=== PATIENT | female | born 1940 | race Caucasian/White ===

== ENCOUNTER → 2019-09-30 12:59 | Outpatient (BNVA) | payer MEDICARE, OTHER, SELFPAY | PROVIDERS: Family Provider Family Medicine; PCP Family Medicine; Visit Provider Nurse Practitioner Family | DX: J18.9 Pneumonia, unspecified organism (principal) | CPT/HCPCS: 80048 ==

== ENCOUNTER → 2019-10-20 13:26 | Outpatient (BNVA) | payer MEDICARE, OTHER, SELFPAY | PROVIDERS: Family Provider Family Medicine; PCP Family Medicine; Visit Provider Family Medicine | DX: J18.9 Pneumonia, unspecified organism (principal) | CPT/HCPCS: 80048 ==

== ENCOUNTER → 2021-05-21 14:04 | Outpatient (BNVA) | payer MEDICARE, OTHER, SELFPAY | PROVIDERS: Family Provider Family Medicine; PCP Family Medicine; Visit Provider Nurse Practitioner Family | DX: K92.2 Gastrointestinal hemorrhage, unspecified (principal); K92.1 Melena | CPT/HCPCS: 80053; 85025 ==

== ENCOUNTER → 2021-07-10 15:34 | Outpatient (BNVA) | payer MEDICARE, OTHER, SELFPAY | PROVIDERS: Family Provider Family Medicine; PCP Family Medicine; Visit Provider Nurse Practitioner Family | DX: R53.83 Other fatigue (principal); A31.0 Pulmonary mycobacterial infection; Z09 Encounter for follow-up examination after completed treatment for conditions other than malignant neoplasm; Z68.22 Body mass index [BMI] 22.0-22.9, adult; Z71.89 Other specified counseling | CPT/HCPCS: 71046; 80053; 82306; 82607; 84443; 85025 ==

== ENCOUNTER → 2021-08-01 10:34 | Outpatient (BNVA) | payer MEDICARE, OTHER, SELFPAY | PROVIDERS: Family Provider Family Medicine; PCP Family Medicine; Visit Provider Nurse Practitioner Family | DX: E87.6 Hypokalemia (principal) | CPT/HCPCS: 80048; 85025 ==

== ENCOUNTER → 2021-11-22 09:53 | Outpatient (BNVA) | payer MEDICARE, OTHER, SELFPAY | PROVIDERS: Family Provider Family Medicine; PCP Family Medicine; Visit Provider Internal Medicine Pulmonary Disease | DX: J47.9 Bronchiectasis, uncomplicated (principal); R04.2 Hemoptysis; J45.909 Unspecified asthma, uncomplicated; Z09 Encounter for follow-up examination after completed treatment for conditions other than malignant neoplasm; A31.0 Pulmonary mycobacterial infection; J96.11 Chronic respiratory failure with hypoxia; J45.40 Moderate persistent asthma, uncomplicated | CPT/HCPCS: 87015; 87070; 87116; 87206; 87801; 99214 ==

== ENCOUNTER 2022-02-06 08:59 | Outpatient (CLI) | payer MEDICARE, OTHER, SELFPAY ==
--- NOTE | 2022-02-06 14:27 | PFTS_ITS ---
Date of Study:02/06/22 Date of Dictation: MECHANICS: Forced vital capacity (FVC) is reduced. Forced expiratory volume in one second (FEV1) is reduced. FEV1/FVC is reduced. FLOW VOLUME LOOP: Reduced flow at all lung volumes with significant scooping. LUNG VOLUMES: Total lung capacity (TLC) is normal. Residual volume (RV) is increased. DIFFUSING CAPACITY FOR CARBON MONOXIDE: Moderately reduced. INTERPRETATION: The prebronchodilator spirometry is consistent with moderate airflow obstruction. No postbronchodilator spirometry was performed. However, the patient used her rescue inhaler prior to the spirometry. Lung volumes are consistent with air trapping. Gas exchange (DLCO) is moderately reduced. MTDD
== END 2022-02-06 09:00 | disposition home or self-care (01) ==
LOC: RT 09:01
PROVIDERS: Family Provider Family Medicine; PCP Family Medicine; Visit Provider Internal Medicine Pulmonary Disease
DX: J44.9 Chronic obstructive pulmonary disease, unspecified (principal); F17.210 Nicotine dependence, cigarettes, uncomplicated
CPT/HCPCS: 94010; 94726; 94729

== ENCOUNTER 2022-02-18 13:39 | Outpatient (CLI) | payer MEDICARE, OTHER, SELFPAY ==
--- NOTE | 2022-02-18 13:30 | CTR_ITS ---
PROCEDURE INFORMATION: Exam: CT Chest Without Contrast; Diagnostic Exam date and time: 02/18/2022 1:46 PM Age: 81 years old Clinical indication: Abnormal findings; Abnormal radiologic exam of lung or chest; Additional info: New opacity on chest xray in July 2021 TECHNIQUE: Imaging protocol: Diagnostic computed tomography of the chest without contrast. Radiation optimization: All CT scans at this facility use at least one of these dose optimization techniques: automated exposure control; mA and/or kV adjustment per patient size (includes targeted exams where dose is matched to clinical indication); or iterative reconstruction. COMPARISON: CT angio chest [id number] 03/16/2021 8:20 AM RADIATION DOSE METRICS: Total DLP (mGy-cm): 673.82 FINDINGS: Lungs: Scattered somewhat focal airspace opacities throughout both lung aviles, somewhat similar to prior exam may reflect a chronic infectious or inflammatory process. Emphysematous changes. Pleural spaces: Unremarkable. No pneumothorax. No pleural effusion. Heart: Cardiomegaly. Coronary artery atherosclerotic calcifications. Lymph nodes: Several prominent mediastinal lymph nodes measuring 10 mm, nonspecific. Vasculature: Unremarkable. No aortic aneurysm. Gallbladder and bile ducts: Cholecystectomy. Bones/joints: Pectus excavatum deformity, normal variant. Right humeral head and glenoid chronic deformity and remodeling. Soft tissues: Unremarkable. CT/CT chest wo con [id number] IMPRESSION: 1. Scattered somewhat focal airspace opacities throughout both lung aviles, somewhat similar to prior exam may reflect a chronic infectious or inflammatory process. 2. Cardiomegaly. 3. Coronary artery atherosclerotic calcifications. 4. Several prominent mediastinal lymph nodes measuring 10 mm, nonspecific. 5. Pectus excavatum deformity, normal variant. 6. Cholecystectomy. 7. Right humeral head and glenoid chronic deformity and remodeling. 8. Emphysematous changes.
== END 2022-02-18 13:40 | disposition home or self-care (01) ==
LOC: RAD 13:40
PROVIDERS: Family Provider Family Medicine; PCP Family Medicine; Visit Provider Internal Medicine Pulmonary Disease
DX: R04.2 Hemoptysis (principal); R91.8 Other nonspecific abnormal finding of lung field; I51.7 Cardiomegaly; I25.10 Atherosclerotic heart disease of native coronary artery without angina pectoris; Z90.49 Acquired absence of other specified parts of digestive tract; R59.0 Localized enlarged lymph nodes; Q67.6 Pectus excavatum; M21.921 Unspecified acquired deformity of right upper arm
CPT/HCPCS: 71250

== ENCOUNTER 2022-03-11 06:00 | Outpatient (RCR) | payer MEDICARE, OTHER, SELFPAY | END 2022-03-20 23:59 | disposition home or self-care (01) | LOC: TPT 06:00 | PROVIDERS: Family Provider Family Medicine; PCP Family Medicine; Referring Provider Internal Medicine Pulmonary Disease; Visit Provider Internal Medicine Pulmonary Disease | DX: R53.81 Other malaise (principal); J96.11 Chronic respiratory failure with hypoxia; J47.9 Bronchiectasis, uncomplicated | CPT/HCPCS: 97110; 97163 ==

== ENCOUNTER 2022-03-21 06:00 | Outpatient (RCR) | payer MEDICARE, OTHER, SELFPAY | END 2022-04-20 23:59 | disposition home or self-care (01) | LOC: TPT 06:00 | PROVIDERS: PCP Family Medicine; Referring Provider Internal Medicine Pulmonary Disease; Visit Provider Internal Medicine Pulmonary Disease | DX: J96.11 Chronic respiratory failure with hypoxia (principal); J47.9 Bronchiectasis, uncomplicated; R53.81 Other malaise | CPT/HCPCS: 97110 ==

== ENCOUNTER → 2022-03-26 12:49 | Outpatient (BNVA) | payer MEDICARE, OTHER, SELFPAY | PROVIDERS: Family Provider Family Medicine; PCP Family Medicine; Visit Provider Internal Medicine Pulmonary Disease | DX: J84.9 Interstitial pulmonary disease, unspecified (principal); I70.0 Atherosclerosis of aorta | CPT/HCPCS: 71046 ==

== ENCOUNTER → 2022-03-27 10:16 | Outpatient (BNVA) | payer MEDICARE, OTHER, SELFPAY | PROVIDERS: Family Provider Family Medicine; PCP Family Medicine; Visit Provider Internal Medicine Pulmonary Disease | DX: R05.8 Other specified cough (principal) | CPT/HCPCS: 87015; 87070; 87116; 87205; 87206; 87801 ==

== ENCOUNTER 2022-04-21 06:00 | Outpatient (RCR) | payer MEDICARE, OTHER, SELFPAY | END 2022-05-21 23:59 | disposition home or self-care (01) | LOC: TPT 06:00 | PROVIDERS: PCP Family Medicine; Visit Provider Internal Medicine Pulmonary Disease | DX: J96.11 Chronic respiratory failure with hypoxia (principal); J47.9 Bronchiectasis, uncomplicated; R53.81 Other malaise | CPT/HCPCS: 97110 ==

== ENCOUNTER → 2022-04-23 16:52 | Outpatient (BNVA) | payer MEDICARE, OTHER, SELFPAY | PROVIDERS: PCP Family Medicine; Visit Provider Family Medicine | DX: R53.83 Other fatigue (principal); I95.9 Hypotension, unspecified | CPT/HCPCS: 85025 ==

== ENCOUNTER 2022-05-22 06:00 | Outpatient (RCR) | payer MEDICARE, OTHER, SELFPAY | END 2022-06-20 23:59 | disposition home or self-care (01) | LOC: TPT 06:00 | PROVIDERS: PCP Family Medicine; Visit Provider Internal Medicine Pulmonary Disease | DX: J96.11 Chronic respiratory failure with hypoxia (principal); J47.9 Bronchiectasis, uncomplicated; R53.81 Other malaise | CPT/HCPCS: 97110 ==

== ENCOUNTER 2022-06-21 06:00 | Outpatient (RCR) | payer MEDICARE, OTHER, SELFPAY | END 2022-07-21 23:59 | disposition home or self-care (01) | LOC: TPT 06:00 | PROVIDERS: PCP Family Medicine; Visit Provider Internal Medicine Pulmonary Disease | DX: J96.11 Chronic respiratory failure with hypoxia (principal); J47.9 Bronchiectasis, uncomplicated; R53.81 Other malaise | CPT/HCPCS: 97110 ==

== ENCOUNTER → 2022-06-25 12:13 | Outpatient (BNVA) | payer MEDICARE, OTHER, SELFPAY | PROVIDERS: PCP Family Medicine; Visit Provider Internal Medicine Pulmonary Disease | DX: D64.9 Anemia, unspecified (principal); J44.9 Chronic obstructive pulmonary disease, unspecified; R04.2 Hemoptysis; A31.0 Pulmonary mycobacterial infection; R06.02 Shortness of breath; J96.11 Chronic respiratory failure with hypoxia; J45.40 Moderate persistent asthma, uncomplicated; R91.1 Solitary pulmonary nodule | CPT/HCPCS: 85025 ==

== ENCOUNTER 2022-07-22 06:00 | Outpatient (RCR) | payer MEDICARE, OTHER, SELFPAY | END 2022-08-20 23:59 | disposition home or self-care (01) | LOC: TPT 06:00 | PROVIDERS: PCP Family Medicine; Visit Provider Internal Medicine Pulmonary Disease | DX: J96.11 Chronic respiratory failure with hypoxia (principal); J47.9 Bronchiectasis, uncomplicated; R53.81 Other malaise | CPT/HCPCS: 97110 ==

== ENCOUNTER 2022-07-31 14:39 | Outpatient (CLI) | payer MEDICARE, OTHER, SELFPAY ==
--- NOTE | 2022-07-31 15:30 | CT_ITS ---
WS: [id number] CT CHEST WITHOUT INTRAVENOUS CONTRAST HISTORY: R91.1 - Solitary pulmonary nodule TECHNIQUE: Contiguous 5 mm axial imaging performed on the thorax. Coronal and sagittal reformats are submitted. All CT scans at [facility] use at least one of these dose optimization techniques: automated exposure control; mA and/or kV adjustment per patient size (includes targeted exams where dose is matched to clinical indication); or iterative reconstruction. CONTRAST: None DLP: 734.64 mGy.cm COMPARISON: 02/18/2022 Lungs and central airway: Hyperexpanded lungs with diffuse scattered airspace disease. Numerous spicu lated opacifications and nodules are predominantly in the upper lung aviles. These have slightly incr eased in size and number since 02/18/2022. Majority of these small nodules are less than a centimeter. There is an area of increasing consolidation which I favor atelectasis along the RIGHT superior LEFT major fissure. Cylindrical bronchiectasis RIGHT middle lobe. Diffuse tree-in-bud airspace disease. Pleura: Normal. No pleural effusion. Heart and pericardium: Mildly enlarged heart. Heart is being deformed by pectus carinatum. Mediastinum and dionisio: On this unenhanced study no new or enlarging lymph nodes are identified. Subtle changes would be easily obscured without IV contrast. Vessels: Mild ectasia and atherosclerosis aorta. No aneurysm. Normal sized pulmonary artery. Chest wall and lower neck: Pectus carinatum. Upper abdomen: Prior cholecystectomy. No adrenal mass. Osseous structures: Osteopenia. Mild diffuse spondylitic changes in the visualized spine. Severe dege nerative changes involving the RIGHT shoulder. There is remodeling and chronic joint destruction. CT/CT chest wo con [id number] IMPRESSION: 1. Mild progression of bilateral, multilobar scattered opacifications. Some of these opacifications are tree-in-bud and some are spiculated. Increasing conso lidation along the LEFT major fissure is atelectasis. Favor these changes are p robably all postinflammatory and related to interstitial lung disease. With the slight increase in the size and number of the spiculated nodules metastatic di sease is not excluded. 2. RIGHT middle lobe partial atelectasis and bronchiectasis. 3. No central adenopathy. 4. Prior cholecystectomy.
== END 2022-07-31 14:40 | disposition home or self-care (01) ==
LOC: RAD 14:44
PROVIDERS: PCP Family Medicine; Visit Provider Internal Medicine Pulmonary Disease
DX: R91.1 Solitary pulmonary nodule (principal); Z90.49 Acquired absence of other specified parts of digestive tract; J98.11 Atelectasis; J47.9 Bronchiectasis, uncomplicated
CPT/HCPCS: 71250

== ENCOUNTER 2022-08-21 06:00 | Outpatient (RCR) | payer MEDICARE, OTHER, SELFPAY | END 2022-09-20 23:59 | disposition home or self-care (01) | LOC: TPT 06:00 | PROVIDERS: PCP Family Medicine; Visit Provider Internal Medicine Pulmonary Disease | DX: J96.11 Chronic respiratory failure with hypoxia (principal); J47.9 Bronchiectasis, uncomplicated; R53.81 Other malaise | CPT/HCPCS: 36415; 71045; 80048; 80053; 83735; 83880; 84100; 84443; 84484; 85025; 86403; 87040; 87486; 87581; 87633; 93005; 97110 ==

== ENCOUNTER 2022-09-01 07:36 | Inpatient (IN) | payer MEDICARE, OTHER, SELFPAY ==
[2022-09-01] VITALS (24 sets, daily range): BP systolic 93–130; BP diastolic 60–96; PULSE 77–141; RESP 16–29; TEMP 36.6; O2SAT 94–100; BMI 28.1
--- NOTE | 2022-09-01 07:48 | W.ED.ARRPALP ---
HPI - Arrhythmia/Palpitations General: Chief Complaint: Chest Pain Stated Complaint: CP/SOB Time Seen by Provider: 09/01/22 07:46 Source: patient Mode of arrival: ambulatory History of Present Illness: 82-year-old female presents emergency room with A. fib with rapid ventricular response. She had a known history of atrial fibrillation and is currently on sotalol she did take her morning dose she usually takes 80 mg twice daily. She is unsure of what she has been on in the past. 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 She is also on Eliquis 5 mg twice a day no recent medication changes she denies any chest pain she does have a sense of the rapid heart rate denies any shortness of breath she is moderately anxious on arrival she states it began suddenly this morning yesterday she felt normal. Patient has a history of bronchiectasis from [facility] [place]. She tells me she recently had a PET scan that she has not had the results of yet. She is having slight increased sputum cough with production of sputum. According to Dr. Meredith's notes this is chronic. complaint: rapid heart beat Onset (ago): hour(s) Duration: constant Severity: moderate Context: occurred during rest Arrhythmia history: atrial fibrillation Associated symptoms: Deny anxiety, cough, diaphoresis, muscle cramps, nausea, paresthesias, pre-syncope, sense of impending doom, short of breath, syncope or vomiting Review of Systems Const: Denies: fever(s), chills, fatigue, malaise or diaphoresis ENMT: Denies: throat pain, ear or mastoid pain, nasal discharge or nasal congestion Card: Reports: palpitations, irregular heart rhythm and dyspnea on exertion; Denies: chest pain, edema, swelling of feet/ankles, syncope, pre-syncope or orthopnea Resp: Denies: dyspnea, productive cough or non-productive cough GI: Denies: abdominal pain, nausea or vomiting : Denies: flank pain, difficulty voiding, dysuria, urinary frequency or urinary urgency Musc: Denies: muscle cramps Skin/Breast: Denies: rash or pruritus Psych: Denies: anxiety PFSH ED PFSH: Medical History (Updated 09/01/22 @ 12:53 by Fuad Martinez DO) Afib Anemia Asthma Bronchiectasis DJD (degenerative joint disease) GERD (gastroesophageal reflux disease) Hypertension Insomnia Migraine Mycobacterium avium complex Retinal tear Surgical History (Updated 09/01/22 @ 12:53 by Fuad Martinez DO) H/O colonoscopy 07/03/21: polyps, 3 year repeat History of appendectomy History of cholecystectomy History of hysterectomy History of right knee surgery Social History Smoking and tobacco status: former smoker Quit status (tobacco): has quit using tobacco Year quit tobacco: 1969 Former quit date comment: approx 1ppd x 4 years Second hand smoke exposure: Yes Alcohol intake: current Alcohol intake frequency: holidays/special occasions only Caregiver/support person: Yes (daughter) Lives independently: Yes Household members: none Marital status: / Current occupational status: retired History of recent travel: No Current gender identity: Female Special allen needs: No Physical Exam Const: GENERAL APPEARANCE: cooperative and comfortable ORIENTATION/CONSCIOUSNESS: Yes awake, Yes oriented to person, Yes oriented to place and Yes oriented to time HENMT: COMMON NORMALS: normocephalic, atraumatic and hearing grossly normal bilaterally HEAD & SCALP: normocephalic and atraumatic Resp: COMMON NORMALS: normal respiratory effort, No retractions, No use of accessory muscles and clear to auscultation bilaterally AUSCULTATION: clear to auscultation bilaterally Cardio: RATE: tachycardic RHYTHM: abnormal rhythm irregularly irregular GI: COMMON NORMALS: Soft to palpation and No hepatosplenomegaly present AUSCULTATION: Yes normoactive bowel sounds PALPATION: Yes Soft to palpation, No Tenderness to palpation present (GI), No Guarding due to palpation present (GI) and Yes No hepatosplenomegaly present : COMMON NORMALS: Yes no CVA tenderness BLADDER/KIDNEY EXAM: Yes no CVA tenderness Back/Pelvis: COMMON NORMALS: no CVA tenderness Extremity: COMMON NORMALS: normal to inspection, capillary refill normal, no clubbing, cyanosis or edema, no calf tenderness and no pedal edema Neuro: SENSORIUM/ORIENTATION: Yes oriented to person, Yes oriented to place and Yes oriented to time Skin: COMMON NORMALS: no rashes or lesions noted GENERAL SKIN EXAM: no rashes or lesions noted Course Vital Signs: Vital signs: Vital Signs Pulse Rate 114 H 09/01/22 12:43 Respiratory Rate 16 12/12/22 12:39 Blood Pressure 93/71 09/01/22 11:00 Pulse Oximetry 94 09/01/22 12:39 Oxygen Delivery Me thod 09/01/22 12:39 Oxygen Flow Rate 3 09/01/22 12:39 MDM - Arrhythmia/Palpitations Medical Decision Making A. fib and rapid ventricular spines. Patient states she had a little chest discomfort as well as shortness of breath she normally wears 4 L of oxygen for COPD we attempted to get her back to a controlled rate in the emergency room avoid hospital admission we gave her an extra 40 mg of sotalol initially started on Cardizem and then try to titrate her off were able to titrate her off but with any activity even repositioning herself in bed she shoots up to the 120s and 130s. Patient be placed in observation discussed with Dr. Gandara orders written Medical Records I reviewed the patient's medical records. Lab Data I reviewed the patient's lab results. 09/01/22 08:17 09/01/22 08:17 Radiology Impressions Chest X-Ray 09/01/22 08:33 Impression: 1. Minimal patchy peripheral left lung opacity which could represent atelectasis and/or pneumonia. 2. Atherosclerosis and hyperinflation. Laboratory Results WBC 10.9 10^3/uL (4.0-10.0) H 09/01/22 08:17 RBC 3.82 10^6/uL (4.1-5.3) L 09/01/22 08:17 Hgb 12.0 g/dL (11.5-15.3) 09/01/22 08:17 Hct 38.5 % (37.0-47.0) 09/01/22 08:17 MCV 100.8 fl (81-99) H 09/01/22 08:17 MCH 31.4 pg (28.0-34.0) 09/01/22 08:17 MCHC 31.2 g/dL (30.0-36.0) 09/01/22 08:17 RDW 13.8 % (12.1-15.1) 09/01/22 08:17 Plt Count 383 10^3/cmm (130-400) 09/01/22 08:17 MPV 9.5 fL (7.4-10.4) 09/01/22 08:17 Neut % (Auto) 81.2 % 09/01/22 08:17 Lymph % (Auto) 11.4 % 09/01/22 08:17 [place] % (Auto) 4.9 % 09/01/22 08:17 Eos % (Auto) 1.5 % 09/01/22 08:17 Baso % (Auto) 0.6 % 09/01/22 08:17 Neut # (Auto) 8.82 10^3/uL (1.8-7.7) H 09/01/22 08:17 Lymph # (Auto) 1.2 10^3/uL (0.8-4.8) 09/01/22 08:17 [place] # (Auto) 0.5 10^3/uL (0.2-0.9) 09/01/22 08:17 Eos # (Auto) 0.2 10^3/uL (0.0-0.8) 09/01/22 08:17 Baso # (Auto) 0.1 10^3/uL (0.0-0.1) 09/01/22 08:17 Nucleated RBC % (auto) 0 % 09/01/22 08:17 Nucleated RBCs # 0.0 /100WBC 09/01/22 08:17 Sodium 135 mmol/L (136-145) L 09/01/22 08:17 Potassium 4.2 mmol/L (3.5-5.1) 09/01/22 08:17 Chloride 100 mmol/L (98-107) 09/01/22 08:17 Carbon Dioxide 25 mmol/L (22-29) 09/01/22 08:17 Anion Gap 14.2 (5-19) 09/01/22 08:17 BUN 19 mg/dL (8-23) 09/01/22 08:17 Creatinine 0.7 mg/dL (0.5-0.9) 09/01/22 08:17 GFR Calculation Not Reportable 09/01/22 08:17 Glucose 122 mg/dL (65-115) H 09/01/22 08:17 Calculated Osmolality 284 mOsm/kg (285-295) L 09/01/22 08:17 Calcium 9.5 mg/dL (8.5-10.5) 09/01/22 08:17 Total Bilirubin 0.6 mg/dL (0.15-1.2) 09/01/22 08:17 AST 24 U/L (0-32) 09/01/22 08:17 ALT 16 U/L (0-33) 09/01/22 08:17 Alkaline Phosphatase 68 U/L (35-105) 09/01/22 08:17 Total Protein 6.5 g/dL (6.6-8.7) L 09/01/22 08:17 Albumin 3.4 g/dL (3.5-5.2) L 09/01/22 08:17 Globulin 3.1 g/dL (1.3-4.6) 09/01/22 08:17 Discharge Plan Discharge Patient Disposition: Placed in Observation Clinical Impression: Atrial fibrillation with rapid ventricular response, COPD (chronic obstructive pulmonary disease), Bronchiectasis Coding Level of Care Code ED Edge Bander Hand for Carag Fwd Exam Comprehensive
--- NOTE | 2022-09-01 07:52 | ECG_ITS ---
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 Measurements Intervals Ramer Rate: 140 P: 0 IN: 0 QRS: -47 QRSD: 106 T: 113 QT: 315 QTc: 482 Interpretive Statements ATRIAL FIBRILLATION WITH RAPID VENTRICULAR RESPONSE LEFT AXIS DEVIATION [QRS AXIS < -30] VOLTAGE CRITERIA FOR LVH [MEETS CRITERIA IN ONE OF: R(aVL), S(V1), R(V5), R(V5/V6)+S(V1)] ST DEVIATION AND MODERATE T-WAVE ABNORMALITY, CONSIDER LATERAL ISCHEMIA [-0.1+ mV T-WAVE IN I/aVL/V5/V6] No previous ECG available for comparison Electronically Signed On 09-01-2022 14:59:09 SHIPPING AGENT by Diego Hoffman M.D. [email or web address]
[2022-09-01] MEDS: dilTIAZem 5 mg/mL SDV 5 mL 10 MG IVP (07:54)
[2022-09-01] MEDS: dilTIAZem 100 MG in sodium chloride 0.9% (add-van) 100 ML IV (08:06)
[2022-09-01] MEDS: sotalol 80 mg Tablet 40 MG PO ×2 (08:23→17:34)
--- NOTE | 2022-09-01 08:33 | XR_ITS ---
WS: [id number] Portable AP upright chest, 09/01/2022 Clinical Data: dyspnea/cough Comparison: PA and lateral chest, 03/26/2022 Findings: No nodules, masses or effusions are seen. The heart is slightly enlarged. The pulmonary vas cularity is not increased. No pneumothorax is seen. There is minimal patchy opacity in the lateral as pect of the left lung which could represent atelectasis and/or pneumonia. The aortic arch and descend ing thoracic aorta show tortuosity and calcification. There are monitor leads on the chest wall. The diaphragms are flattened. XR/XR chest 1V portable [id number] Impression: 1. Minimal patchy peripheral left lung opacity which could represent atelectasi s and/or pneumonia. 2. Atherosclerosis and hyperinflation.
[2022-09-01 08:45] LABS: Basophils # 0.1 10^3/uL (0.0-0.1); Basophils % 0.6 %; Eosinophils # 0.2 10^3/uL (0.0-0.8); Eosinophils % 1.5 %; Hematocrit 38.5 % (37.0-47.0); Lymphocytes # 1.2 10^3/uL (0.8-4.8); Lymphocytes % 11.4 %; Mean Corpuscular HGB Conc 31.2 g/dL (30.0-36.0); Mean Corpuscular Hemoglobin 31.4 pg (28.0-34.0); Mean Corpuscular Volume 100.8 fl (81-99); Mean Platelet Volume 9.5 fL (7.4-10.4); Monocytes # 0.5 10^3/uL (0.2-0.9); Monocytes % 4.9 %; Neutrophils # 8.82 10^3/uL (1.8-7.7); Neutrophils % 81.2 %; Nucleated Red Blood Cells % 0 %; Platelet Count 383 10^3/cmm (130-400); Red Blood Count 3.82 10^6/uL (4.1-5.3); Red Cell Distribution Width 13.8 % (12.1-15.1); White Blood Count 10.9 10^3/uL (4.0-10.0)
[2022-09-01 09:01] LABS: Alanine Aminotransferase 16 U/L (0-33); Albumin Level 3.4 g/dL (3.5-5.2); Alkaline Phosphatase 68 U/L (35-105); Blood Urea Nitrogen 19 mg/dL (8-23); Calcium 9.5 mg/dL (8.5-10.5); Carbon Dioxide 25 mmol/L (22-29); Chloride 100 mmol/L (98-107); Globulin 3.1 g/dL (1.3-4.6); Glucose 122 mg/dL (65-115); Osmolality Calculated 284 mOsm/kg (285-295); Sodium 135 mmol/L (136-145); Total Bilirubin 0.6 mg/dL (0.15-1.2); Total Protein 6.5 g/dL (6.6-8.7)
[2022-09-01 09:03] LABS: Anion Gap 14.2 (5-19); Aspartate Amino Transferase 24 U/L (0-32); Potassium 4.2 mmol/L (3.5-5.1)
--- NOTE | 2022-09-01 12:29 | P.HP_ITS ---
Providers/Chief Complaint Admitting Physician: Katheryn Palafox MD Primary Care Provider: Ananya Tirado MD Chief Complaint: CP/SOB History of Present Illness Juli Suresh is a 82 year old female who presented to the emergency room with chief complaint of shortness of breath. She was in her usual state of health, with some slight increase in sputum production over the last week or so as well as development of darker brown sputum rather than her usual green sputum. She was awakened from sleep today however with her heart racing. She has a known history of atrial fibrillation but is usually maintained in sinus rhythm on sotalol. Currently on 40 mg twice daily dosing. No recent dosing changes though has been on 80 mg twice daily in the past. Last indication I could find in other notes was that dosing was changed in November of this year. In addition she has had discontinuation of several antihypertensives over the course of the year due to declining blood pressures. Metoprolol and diltiazem are noted to have been stopped in September of this year. She reports regular use of her sotalol, not missing any doses. She does take Lasix on Wednesdays and Fridays with last dose last Thursday. She took her dose of sotalol this morning but her heart rate continued to be high. On arrival here heart rate was in the 150s. Blood pressure was around 90 systolic. Patient received additional 40 mg of sotalol, IV push diltiazem and initiation of a diltiazem drip. Heart rate improved to around 100 at rest but with any exertion, and at times at rest, heart rate increases to around 120. Patient remains quite symptomatic not feeling right. She is chronically on Eliquis. No recent fevers. No recent notable bleeding. She does have a history of a GI bleed secondary to gastritis and required transfusion in May of this year. No recent new GI symptoms. Rate was unable to be controlled consistently and patient remained in atrial fibrillation with rapid ventricular response. Hospitalist were contacted for admission. 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 She is chronically on breathing treatments, suppressive azithromycin and tobramycin 28 days on/off inhaled. She is currently not on tobramycin. Again she only complains of a slight increase in sputum production over the past week with change in sputum color. No blood has been noted. No incidence of chest pain beyond the sensation of her heart racing. Review of Systems Const: Reports: chills (Hands and feet are always cold); Denies: fever(s) ENMT: Reports: nasal congestion; Denies: throat pain Card: Reports: palpitations, irregular heart rhythm, dyspnea on exertion and orthopnea; Denies: chest pain or edema Resp: Reports: dyspnea, productive cough, non-productive cough, wheezing, change in phlegm color (Dark brown rather than green) and chest congestion (Slight increase recently); Denies: pain on inspiration or hemoptysis GI: Denies: abdominal pain, nausea, vomiting or diarrhea : Denies: difficulty voiding Musc: Reports: other (No new pains reported) Skin/Breast: Denies: rash or pruritus Neuro: Reports: other (Hard of hearing); Denies: frequent falls or difficulty communicating thoughts Neeraj/Lymph: Reports: other (Had GI bleed with melena in May, on anticoagulation); Denies: easy bruising or easy bleeding Medications/Allergies Home Medications Medication Instructions Recorded Confirmed Last Taken Type ascorbic acid (vitamin C) 500 mg 1 gm PO BID 09/30/19 09/01/22 08/31/22 History tablet multivitamin 1 tab PO QAM 09/30/19 09/01/22 08/31/22 History sotalol 80 mg tablet 40 mg PO BID 09/30/19 09/01/22 08/31/22 History apixaban 5 mg tablet (Eliquis) 5 mg PO BID 05/21/21 09/01/22 08/31/22 History cetirizine 10 mg tablet 10 mg PO BEDTIME 08/22/21 09/01/22 08/31/22 History nebulizer #1 ea 08/22/21 09/01/22 Unknown Rx tobramycin 300 mg/4 mL solution 300 mg (4 mL) inhalation BID 28 11/22/21 09/01/22 Unknown Rx for nebulization days #224 mL benzonatate 100 mg capsule 100 mg PO BID PRN Cough 01/22/22 09/01/22 Unknown History melatonin 10 mg capsule 10 mg PO BEDTIME 01/22/22 09/01/22 08/31/22 History montelukast 10 mg tablet 10 mg PO BEDTIME 01/22/22 09/01/22 08/31/22 History ipratropium 0.5 mg-albuterol 3 mg 3 ml inhalation BID wheezing #15 mL 03/12/22 09/01/22 08/31/22 Rx (2.5 mg base)/3 mL nebulization soln albuterol sulfate 90 mcg/actuation 2 puff inhalation Q6H PRN 04/02/22 09/01/22 Unknown Rx aerosol inhaler (ProAir HFA) shortness of breath or wheezing #8.5 grams azithromycin 250 mg tablet See Rx Instructions PO .COMPLEX 06/10/22 09/01/22 08/29/22 Rx #12 tabs Monolaurin 300 mg PO DAILY 09/01/22 09/01/22 Unknown History acetaminophen 500 mg tablet 500 mg PO Q6H PRN Pain 09/01/22 09/01/22 Unknown History calcium carbonate 500 mg calcium 1,000 mg PO BID 09/01/22 09/01/22 08/31/22 History (1,250 mg) tablet diphenhydramine HCl 25 mg capsule 25 mg PO TID PRN Allergy Symptoms 09/01/22 09/01/22 Unknown History (Benadryl) docusate sodium 100 mg capsule 100 mg PO BEDTIME 09/01/22 09/01/22 08/31/22 History (Colace) ferrous sulfate 325 mg (65 mg 325 mg PO DAILY 09/01/22 09/01/22 Unknown History iron) tablet (FeroSul) fluticasone fur. 100 mcg-umeclid 1 inh inhalation BEDTIME 09/01/22 09/01/22 08/31/22 History 62.5 mcg-vilant 25 mcg inhalat.powder (Trelegy Ellipta) furosemide 40 mg tablet See Rx Instructions .Route .COMPLEX 09/01/22 09/01/22 08/29/22 History nitroglycerin 0.4 mg sublingual 0.4 mg sublingual Q5M PRN Chest 09/01/22 09/01/22 09/01/22 06:30 History tablet (Nitrostat) Pain pantoprazole 40 mg tablet,delayed 40 mg PO QAM 09/01/22 09/01/22 08/31/22 History release (Protonix) potassium chloride 20 mEq See Rx Instructions .Route .COMPLEX 09/01/22 09/01/22 08/29/22 History tablet,extended release simethicone 80 mg chewable tablet 80 mg PO DAILY PRN bloating 09/01/22 09/01/22 Unknown History (Gas Relief 80 (simethicone)) Allergies Allergy/AdvReac Type Severity Reaction Status Date / Time adhesive tape Allergy Unknown Verified 09/01/22 14:35 ciprofloxacin Allergy Unknown Verified 09/01/22 14:35 codeine Allergy Unknown Verified 06/25/22 11:10 metronidazole Allergy Unknown Verified 09/01/22 14:35 Sulfa (Sulfonamide Allergy Unknown Verified 06/25/22 11:10 Antibiotics) topiramate [From Topamax] Allergy Unknown Verified 06/25/22 11:10 valsartan [From Diovan] Allergy Unknown Verified 06/25/22 11:10 PFSH Acute PFSH: Medical History (Updated 09/01/22 @ 15:42 by Katheryn Palafox MD) Afib Chronically on sotalol, usually maintains sinus rhythm, symptomatic with episodes of atrial fibrillation Anemia Aortic valve disease stiff per daughter Asthma 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, with variable extent of involvement when imaged Solitary pulmonary nodule Surgical History (Updated 09/01/22 @ 14:24 by Katheryn Palafox MD) H/O colonoscopy 07/03/21: polyps, diverticulosis, 3 year repeat History of appendectomy History of cholecystectomy History of esophagogastroduodenoscopy (EGD) 07/03/21: gastritis History of foot surgery heel, toe left foot History of hysterectomy History of right knee surgery replacement History of shoulder surgery right Status post left knee replacement Family History (Updated 09/01/22 @ 14:18 by Katheryn Palafox MD) Daughter , Ovarian Cancer Cancer Sister Atrial fibrillation Social History (Updated 09/01/22 @ 13:32 by Katheryn Palafox MD) Smoking and tobacco status: former smoker Quit status (tobacco): has quit using tobacco Year quit tobacco: 1969 Former quit date comment: approx 1ppd x 4 years Second hand smoke exposure: Yes Alcohol intake: current Alcohol intake frequency: holidays/special occasions only Caregiver/support person: Yes (daughter) Lives independently: Yes Household members: none Marital status: / Current occupational status: retired Current gender identity: Female Special allen needs: No Vitals/I&O/Wt Last Vital Signs Pulse 96 09/01/22 11:00 Resp 17 09/01/22 11:00 BP 93/71 09/01/22 11:00 Pulse Ox 98 09/01/22 11:00 O2 Del Method 09/01/22 07:52 O2 Flow Rate 3 09/01/22 07:52 08/31/22 09/01/22 09/01/22 22:59 06:59 14:59 Intake Total 26.875 / 26.875 Balance 26.875 / 26.875 Weight last 48 hrs Weight 81.647 kg Physical Exam Narrative: Constitutional: Awake and alert, hard of hearing but able to provide most details, cooperative, oxygen therapy in place HEENT: Normocephalic, atraumatic, extraocular movements intact, nasopharynx with some clear rhinorrhea, moist mucous membranes Neck: Supple, JVD Respiratory: Bibasilar crackles, scattered wheeze in the left upper lobe more so than right side, no rhonchi, tachypneic, currently without accessory muscle use Cardiovascular: Irregularly irregular tachycardic rhythm, 2/6 murmur most notable in the right upper sternal border Abdomen: Soft, nontender, positive bowel sounds Extremities: No pitting edema or calf tenderness, distal extremities cool but with good capillary refill Skin: Dry, a few minor sores, no bruising Neuro: Speech clear, face symmetric, moves all extremities Psych: Normal affect Data 09/01/22 08:17 09/01/22 08:17 Other Labs: Radiology Impressions Chest X-Ray 09/01/22 08:33 Impression: 1. Minimal patchy peripheral left lung opacity which could represent atelectasis and/or pneumonia. 2. Atherosclerosis and hyperinflation. Laboratory Results WBC 10.9 10^3/uL (4.0-10.0) H 09/01/22 08:17 RBC 3.82 10^6/uL (4.1-5.3) L 09/01/22 08:17 Hgb 12.0 g/dL (11.5-15.3) 09/01/22 08:17 Hct 38.5 % (37.0-47.0) 09/01/22 08:17 MCV 100.8 fl (81-99) H 09/01/22 08:17 MCH 31.4 pg (28.0-34.0) 09/01/22 08:17 MCHC 31.2 g/dL (30.0-36.0) 09/01/22 08:17 RDW 13.8 % (12.1-15.1) 09/01/22 08:17 Plt Count 383 10^3/cmm (130-400) 09/01/22 08:17 MPV 9.5 fL (7.4-10.4) 09/01/22 08:17 Neut % (Auto) 81.2 % 09/01/22 08:17 Lymph % (Auto) 11.4 % 09/01/22 08:17 Collin % (Auto) 4.9 % 09/01/22 08:17 Eos % (Auto) 1.5 % 09/01/22 08:17 Baso % (Auto) 0.6 % 09/01/22 08:17 Neut # (Auto) 8.82 10^3/uL (1.8-7.7) H 09/01/22 08:17 Lymph # (Auto) 1.2 10^3/uL (0.8-4.8) 09/01/22 08:17 Collin # (Auto) 0.5 10^3/uL (0.2-0.9) 09/01/22 08:17 Eos # (Auto) 0.2 10^3/uL (0.0-0.8) 09/01/22 08:17 Baso # (Auto) 0.1 10^3/uL (0.0-0.1) 09/01/22 08:17 Nucleated RBC % (auto) 0 % 09/01/22 08:17 Nucleated RBCs # 0.0 /100WBC 09/01/22 08:17 Sodium 135 mmol/L (136-145) L 09/01/22 08:17 Potassium 4.2 mmol/L (3.5-5.1) 09/01/22 08:17 Chloride 100 mmol/L (98-107) 09/01/22 08:17 Carbon Dioxide 25 mmol/L (22-29) 09/01/22 08:17 Anion Gap 14.2 (5-19) 09/01/22 08:17 BUN 19 mg/dL (8-23) 09/01/22 08:17 Creatinine 0.7 mg/dL (0.5-0.9) 09/01/22 08:17 GFR Calculation Not Reportable 09/01/22 08:17 Glucose 122 mg/dL (65-115) H 09/01/22 08:17 Calculated Osmolality 284 mOsm/kg (285-295) L 09/01/22 08:17 Calcium 9.5 mg/dL (8.5-10.5) 09/01/22 08:17 Total Bilirubin 0.6 mg/dL (0.15-1.2) 09/01/22 08:17 AST 24 U/L (0-32) 09/01/22 08:17 ALT 16 U/L (0-33) 09/01/22 08:17 Alkaline Phosphatase 68 U/L (35-105) 09/01/22 08:17 NT-Pro-B Natriuret Pep 1404 pg/mL (0-450) H 09/01/22 08:17 Total Protein 6.5 g/dL (6.6-8.7) L 09/01/22 08:17 Albumin 3.4 g/dL (3.5-5.2) L 09/01/22 08:17 Globulin 3.1 g/dL (1.3-4.6) 09/01/22 08:17 PET SCAN done on 08/21/22 at [facility]: Ill defined densities in upper lobes, slightly greater on left with mild increase in activity in the areas with max SUV of 3.3. Most consistent with post-inflammatory changes. Neoplasm felt less likely. Mild atelectasis in inferior posterior left upper lobe and right middle lobe. Mild increased activity in few lymph nodes on the right and left dionisio and precarinal area in mediastinum with max SUV of 2.8. Not other areas of increased activity seen. A&P Assessment and plan (1) Shortness of breath: Predominantly secondary to onset of A. fib with RVR this morning, awaking her from sleep. Has had some slight increase in sputum production for the past week or so without other described episodes of shortness of breath however. Findings on recent PET scanning suggestive of inflammatory process. Known to have chronic bronchiectasis secondary to history of MAC and follows with pulmonology locally with Dr. Meredith and cardiology in [place] Dr. Miriam Neville. See plans below for management of atrial fibrillation, pneumonia, bronchiectasis (2) Atrial fibrillation with rapid ventricular response: Has a longstanding history of intermittent atrial fibrillation but usually in sinus rhythm on sotalol therapy. Has had several episodes of onset of atrial fibrillation this year sometimes at times of bronchiectasis exacerbation and once with significant anemia requiring transfusion in May of this year. Rate today as high as 150s initially, associated with low blood pressures, which improved after better rate control, and significant symptoms of shortness of breath and unease even without significant tachycardia. Chronically on Sotalol 40mg bid and chronic anticoagulation. Had been on 80 mg twice daily previously but no recent dosage adjustments. Follows with a medical historian in [place], [place]. Earlier this year had been on other antihypertensives including metoprolol, diltiazem, amlodipine and hydralazine but these were stopped in September and March of this year due to development of low blood pressures. In addition to sotalol currently on Lasix therapy 3 times a week. In the emergency room today, received addidtional 40mg dose of sotalol, cardizem push and cardizem drip was initiated with persistent A. fib with RVR notable with minimal exertion. QTC 470-480 on EKGs thus far Cardiology consultation, discussed with Dr. Acharya, to assist with management given degree of symptoms Presently we will continue sotalol though may have adjust chronic dosing Serial EKGs to monitor QTc interval Telemetry monitoring Need to keep in mind chronic azithromycin therapy Check TSH Records have been requested from medical historian Dr. Neville Reports that she had an echocardiogram sometime within the last couple of weeks; hopefully we are able to get those records Serial cardiac enzymes, no known history of coronary artery disease Lasix IV x1 dose, monitoring response (3) Pneumonia: Or other postinflammatory process noted on PET imaging done 08/21/2022 as described above involving both the left upper lobe and right middle lobe. Organism unknown. Present on admission. Reviewed with pulmonology for their recommendations under the circumstances. Sputum gram stain and culture Collect blood cultures Broad-spectrum antibiotics with vancomycin and Zosyn currently Continue usual azithromycin Not currently on inhaled tobramycin, on a 28-day cycle off and on Will check bacterial antigens and respiratory viral panel Pulmonary toilet to include inhaled steroids Respiratory therapy assess and treat; has required vest therapy in the past Dr. Meredith is available for consultation as needed (4) Bronchiectasis: Chronic, likely with acute exacerbation that has been developing over time secondary to above. Always has symptoms and is on oxygen therapy but does describe some increase in sputum production and a darker colored sputum than usual for the last week or so. Known history of MAC, follows with Dr Meredith. On chronic azithromycin three times per week. History of stenotrophomonas and haemophilus colonization for which she is on chronic tobramycin therapy 28 days on/off. Also on scheduled duonebs, prn albuterol, Trelegy Ellipta, cetirizine, singulair, benzonatate. Takes steroids when needed but last course was about a year ago. Scheduled and as needed breathing treatments to continue Continue home allergy medicines and usual symptom control Vest therapy if needed If not improving overall, can consider systemic steroids given gastritis and upper GI bleed a few months ago will try to hold off unless necessary If systemic steroids initiated we will need to monitor blood glucose levels as well as for GI bleeding On oxygen therapy at 3 L by nasal cannula usually Qualifiers: Bronchiectasis type: with acute exacerbation Qualified Code(s): J47.1 - Bronchiectasis with (acute) exacerbation (5) Chronic anticoagulation: With eliquis Continue home Eliquis which will provide appropriate VTE (6) Anemia: History of iron deficiency anemia on chronic iron replacement, currently normal hemoglobin but received blood transfusion in May of this year. Had EGD and colonoscopy that identified gastritis and some polyps/diverticulosis. Reports black stools since initiating iron. No recent bright red blood or other notable bleeding Continue iron therapy Monitor hemoglobin for drop, particularly if need to initiate steroids Continue chronic PPI Qualifiers: Anemia type: iron deficiency Iron deficiency anemia type: chronic blood loss Qualified Code(s): D50.0 - Iron deficiency anemia secondary to blood loss (chronic) Plan On chronic diuresis M,W,F with lasix plus supplemental potassium; no known history of CHF reported, has taken for lower extremity edema History of what sounds like aortic regurgitation Inpatient admission Continue other home medications as ordered Anticipate discharge home with close outpatient follow-up, possibly with home care services depending on clinical course. Patient lives alone but has [facility]. She is chronically on oxygen and has a nebulizer at home. Will need follow-up with Marva Jamison/Ananya Tirado at [facility], Dr. Miriam Neville in [place] her medical historian and Dr. Meredith here her ingot stripper. Findings, concerns and plans including anticipated cardiology consultation, plan for antibiotics as per Dr. Meredith's recommendations and results of recent PET s can done at [place] were discussed with patient and her daughter and both were given an opportunity to ask questions Supportive care otherwise Full code Attestations Medical Necessity Statement*: Anticipated stay greater than 2 midnights in a patient with chronic respiratory comorbidities as noted above presenting with symptomatic A. fib with RVR. She is usually managed with sotalol and maintained sinus rhythm except in situations in which she is not doing well. She is quite symptomatic when she is in atrial fibrillation. Currently being maintained on IV medications with persistent rapid ventricular response and borderline blood pressures. She has QTC as noted and is on chronic azithromycin therapy. Plan to treat her with IV antibiotics for abnormalities identified on PET scanning to see if any improvement from a cardiac standpoint. Cardiology will be assisting in care. Other plans as indicated. High risk of rapid clinical decline without appropriate intervention. Coding Level of Care Code Acute Manager [employer] for Chg Fwd Diagnoses Shortness of breath R06.02 Atrial fibrillation with rapid ventricular response I48.91 Pneumonia J18.9 Bronchiectasis J47.1 Bronchiectasis type: with acute exacerbation Chronic anticoagulation Z79.01 Anemia D50.0 Anemia type: iron deficiency Iron deficiency anemia type: chronic blood loss
[2022-09-01] MEDS: ipratropium 0.5 mg/2.5 mL Neb INHALATION (12:38)
[2022-09-01] MEDS: levalbuterol 1.25 mg/3 mL Neb INHALATION (12:38)
--- NOTE | 2022-09-01 13:20 | ECG_ITS ---
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 Measurements Intervals [place] Rate: 102 P: 0 NH: 0 QRS: -42 QRSD: 110 T: 82 QT: 361 QTc: 471 Interpretive Statements ATRIAL FIBRILLATION WITH RAPID VENTRICULAR RESPONSE LEFT AXIS DEVIATION [QRS AXIS < -30] VOLTAGE CRITERIA FOR LVH [MEETS CRITERIA IN ONE OF: R(aVL), S(V1), R(V5), R(V5/V6)+S(V1)] NONSPECIFIC ST & T-WAVE ABNORMALITY Compared to ECG 09/01/2022 07:45:01 Possible ischemia no longer present T-wave abnormality still present Electronically Signed On 09-01-2022 15:00:24 ELECTRONIC SCALE ASSEMBLER AND TESTER by Diego Hoffman M.D. [id number]
[2022-09-01 13:26] LABS: NT Pro B Type Natriuretic Pept 1404 pg/mL (0-450)
[2022-09-01 14:25] LABS: Troponin(5th) Baseline 29 ng/L (0-10)
--- NOTE | 2022-09-01 14:31 | ECG_ITS ---
[facility] Test Date: 2022-09-01 Pat Name: Juli Suresh Department: Room: 105 Gender: Female Jack Spinner: : 1940 Requested By: Fuad Ashley Order Number: [id number] Rey MD: Henry Acharya M.D. Measurements Intervals [place] Rate: 98 P: 0 ID: 0 QRS: -41 QRSD: 107 T: 75 QT: 361 QTc: 462 Interpretive Statements ATRIAL FIBRILLATION LEFT AXIS DEVIATION [QRS AXIS < -30] VOLTAGE CRITERIA FOR LVH [MEETS CRITERIA IN ONE OF: R(aVL), S(V1), R(V5), R(V5/V6)+S(V1)] NONSPECIFIC ST & T-WAVE ABNORMALITY Compared to ECG 09/01/2022 13:20:34 No significant changes Electronically Signed On 09-03-2022 0:08:43 SCHOOL BUS INSPECTOR by Henry Acharya M.D. [id number]
[2022-09-01] MEDS: FUROsemide 10 mg/mL SDV 2mL 20 MG IVP (15:20)
[2022-09-01] MEDS: potassium chloride ER 20 mEq Tablet PO (15:20)
[2022-09-01] MEDS: azithromycin 250 mg Tablet PO (15:20)
[2022-09-01 15:46] LABS: Troponin 5 2HR 23.83 ng/L (0-10)
[2022-09-01 15:51] LABS: Troponin 5 2HR Delta -5.17 ABS# (0-10)
--- NOTE | 2022-09-01 16:43 | PM.CONSULT ---
Providers/Reason For Consult Consulting Physician/Specialty*: TREVOR Acharya MD/cardiology Reason for Consult*: Patient is a symptomatic atrial fibrillation/prolonged QTC/currently on sotalol treatment Requesting Physician: Dr. Palafox Attending Physician: Katheryn Palafox MD Primary Care Provider: Ananya Tirado MD History of Present Illness History of Present Illness Juli Suresh is a 82 year old female with a history of chronic intermittent atrial fibrillation, is presenting with complaints of chest pain, palpitation and shortness of breath since this morning. This patient is being followed by a top dyeing machine tender in [facility] for atrial fibrillation. She has been taking the sotalol 40 mg p.o. twice daily and Eliquis. Around 5:00 this morning, she woke up with palpitation and some chest discomfort. She also has some amount of shortness of breath. She called her daughter and the daughter brought her to our hospital. This patient was diagnosed with atrial fibrillation sometime in 2016. She was evaluated by Dr. Garsia at the [facility] in [place]. Initially she was placed on Betapace 80 mg p.o. twice daily. But later on, when she started taking the Zithromax for Mycobacterium avium infection, the dose was cut back to 40 mg p.o. twice daily. She apparently had few hospital admissions for recurrent atrial fibrillation with rapid ventricular rate. She was tried on metoprolol and Cardizem in the past. One time she was taking metoprolol 75 mg p.o. twice daily. She had prolonged pauses on the telemetry with Cardizem and for that reason Cardizem was discontinued. Even though it is not very clear as to why the metoprolol was discontinued, I presume that it was done when she was started on the sotalol. Patient has a history of chest pain off and on for some time. She had a cardiac catheterization many years ago, according to the family and was told to have no blockages. She usually get chest discomfort with the recurrence of atrial fibrillation. She has a history of COPD and Mycobacterium infection as mentioned above. Denies any fever or chills. She has a cough. She also is diagnosed with bronchiectasis and history of hemoptysis. Has not had any recent hemoptysis. She had a upper and lower endoscopy few months ago in [place]. She had some respiratory complications with the IV sedation Review of Systems Narrative: CONSTITUTIONAL: No fever or chills. EYES: No blurring of vision or other visual disturbances lately. ENT: No hoarseness of voice, auditory disturbances or sore throat. CARDIOVASCULAR: As mentioned above. RESPIRATORY: Shortness of breath and cough as mentioned above. GASTROINTESTINAL: No hematemesis or melena. GENITOURINARY: No dysuria or hematuria. INTEGUMENTARY: No skin rashes or history of skin cancer. NEURO: No transient ischemic attacks or amaurosis. PSYCHIATRIC: No history of psychosis or major depression. HEMATOLOGIC: History of anemia ENDOCRINE: No history of polyuria or polydipsia. MUSCULOSKELETAL: No recent joint pain or swelling. ALLERGY/IMMUNOLOGY: As mentioned above. Medications/Allergies Home Medications Medication Instructions Recorded Confirmed Last Taken Type ascorbic acid (vitamin C) 500 mg 1 gm PO BID 09/30/19 09/01/22 08/31/22 History tablet multivitamin 1 tab PO QAM 09/30/19 09/01/22 08/31/22 History sotalol 80 mg tablet 40 mg PO BID 09/30/19 09/01/22 08/31/22 History apixaban 5 mg tablet (Eliquis) 5 mg PO BID 05/21/21 09/01/22 08/31/22 History cetirizine 10 mg tablet 10 mg PO BEDTIME 08/22/21 09/01/22 08/31/22 History nebulizer #1 ea 08/22/21 09/01/22 Unknown Rx tobramycin 300 mg/4 mL solution 300 mg (4 mL) inhalation BID 28 11/22/21 09/01/22 Unknown Rx for nebulization days #224 mL benzonatate 100 mg capsule 100 mg PO BID PRN Cough 01/22/22 09/01/22 Unknown History melatonin 10 mg capsule 10 mg PO BEDTIME 01/22/22 09/01/22 08/31/22 History montelukast 10 mg tablet 10 mg PO BEDTIME 01/22/22 09/01/22 08/31/22 History ipratropium 0.5 mg-albuterol 3 mg 3 ml inhalation BID wheezing #15 mL 03/12/22 09/01/22 08/31/22 Rx (2.5 mg base)/3 mL nebulization soln albuterol sulfate 90 mcg/actuation 2 puff inhalation Q6H PRN 04/02/22 09/01/22 Unknown Rx aerosol inhaler (ProAir HFA) shortness of breath or wheezing #8.5 grams azithromycin 250 mg tablet See Rx Instructions PO .COMPLEX 06/10/22 09/01/22 08/29/22 Rx #12 tabs Monolaurin 300 mg PO DAILY 09/01/22 09/01/22 Unknown History acetaminophen 500 mg tablet 500 mg PO Q6H PRN Pain 09/01/22 09/01/22 Unknown History calcium carbonate 500 mg calcium 1,000 mg PO BID 09/01/22 09/01/22 08/31/22 History (1,250 mg) tablet diphenhydramine HCl 25 mg capsule 25 mg PO TID PRN Allergy Symptoms 09/01/22 09/01/22 Unknown History (Benadryl) docusate sodium 100 mg capsule 100 mg PO BEDTIME 09/01/22 09/01/22 08/31/22 History (Colace) ferrous sulfate 325 mg (65 mg 325 mg PO DAILY 09/01/22 09/01/22 Unknown History iron) tablet (FeroSul) fluticasone fur. 100 mcg-umeclid 1 inh inhalation BEDTIME 09/01/22 09/01/22 08/31/22 History 62.5 mcg-vilant 25 mcg inhalat.powder (Trelegy Ellipta) furosemide 40 mg tablet See Rx Instructions .Route .COMPLEX 09/01/22 09/01/22 08/29/22 History nitroglycerin 0.4 mg sublingual 0.4 mg sublingual Q5M PRN Chest 09/01/22 09/01/22 09/01/22 06:30 History tablet (Nitrostat) Pain pantoprazole 40 mg tablet,delayed 40 mg PO QAM 09/01/22 09/01/22 08/31/22 History release (Protonix) potassium chloride 20 mEq See Rx Instructions .Route .COMPLEX 09/01/22 09/01/22 08/29/22 History tablet,extended release simethicone 80 mg chewable tablet 80 mg PO DAILY PRN bloating 09/01/22 09/01/22 Unknown History (Gas Relief 80 (simethicone)) Allergies Allergy/AdvReac Type Severity Reaction Status Date / Time adhesive tape Allergy Unknown Verified 09/01/22 14:35 ciprofloxacin Allergy Unknown Verified 09/01/22 14:35 codeine Allergy Unknown Verified 06/25/22 11:10 metronidazole Allergy Unknown Verified 09/01/22 14:35 Sulfa (Sulfonamide Allergy Unknown Verified 06/25/22 11:10 Antibiotics) topiramate [From Topamax] Allergy Unknown Verified 06/25/22 11:10 valsartan [From Diovan] Allergy Unknown Verified 06/25/22 11:10 PFSH Acute PFSH: Medical History Afib Chronically on sotalol, usually maintains sinus rhythm, symptomatic with episodes of atrial fibrillation Anemia Aortic stenosis Peak gradient 45 mmHg, mean 21 mmHg on echo 08/18/2022. Moderate in severity. 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, with variable extent of involvement when imaged Solitary pulmonary nodule Surgical History H/O colonoscopy 07/03/21: polyps, diverticulosis, 3 year repeat History of appendectomy History of cholecystectomy History of esophagogastroduodenoscopy (EGD) 07/03/21: gastritis History of foot surgery heel, toe left foot History of hysterectomy History of right knee surgery replacement History of shoulder surgery right Status post left knee replacement Family History Daughter , Ovarian Cancer Cancer Sister Atrial fibrillation Social History Smoking and tobacco status: former smoker Quit status (tobacco): has quit using tobacco Year quit tobacco: 1969 Former quit date comment: approx 1ppd x 4 years Second hand smoke exposure: Yes Alcohol intake: current Alcohol intake frequency: holidays/special occasions only Caregiver/support person: Yes (daughter) Lives independently: Yes Household members: none Marital status: / Current occupational status: retired Current gender identity: Female Special allen needs: No Vitals/I&O/Wt Last Vital Signs Pulse 104 H 09/01/22 14:00 Resp 18 09/01/22 13:30 BP 94/78 09/01/22 14:00 Pulse Ox 98 09/01/22 16:26 O2 Del Method 09/01/22 12:39 O2 Flow Rate 2 09/01/22 16:26 09/01/22 09/01/22 09/01/22 06:59 14:59 22:59 Intake Total 32.375 / 32.375 Balance 32.375 / 32.375 Weight last 48 hrs Weight 180 lb Physical Exam Narrative: GENERAL: The patient is alert and oriented times three. Not in any acute distress. HEENT: No significant pallor, icterus or lymphadenopathy.Oral cavity: There are no mucous membrane lesions. NECK: Trachea appears to be central. No masses noted. No JVD or thyromegaly appreciated. RESPIRATORY: Scattered coarse crackles and occasional expiratory wheezing. BREASTS: Deferred. HEART: The heart sounds are normal. No S3 or S4. Short systolic murmur at the left sternal border. No pericardial rub ABDOMEN: No vessel pulsations or distention. No tenderness. No organomegaly appreciated. Bowel sounds are normally heard. : Deferred. RECTAL: Deferred. LYMPHATIC: No lymphadenopathy noted in the neck. EXTREMITIES: No edema or cyanosis. No clubbing. MUSCULOSKELETAL: No acute joint deformities or swelling SKIN: There are no significant rashes or ecchymosis NEUROPSYCHIATRIC: The patient is alert and oriented x3. Appears to be in a good mood. No tremors or rigidity noted. Data 09/01/22 08:17 09/01/22 08:17 Other Labs: Laboratory Last Values WBC 10.9 10^3/uL (4.0-10.0) H 09/01/22 08:17 RBC 3.82 10^6/uL (4.1-5.3) L 09/01/22 08:17 Hgb 12.0 g/dL (11.5-15.3) 09/01/22 08:17 Hct 38.5 % (37.0-47.0) 09/01/22 08:17 MCV 100.8 fl (81-99) H 09/01/22 08:17 MCH 31.4 pg (28.0-34.0) 09/01/22 08:17 MCHC 31.2 g/dL (30.0-36.0) 09/01/22 08:17 RDW 13.8 % (12.1-15.1) 09/01/22 08:17 Plt Count 383 10^3/cmm (130-400) 09/01/22 08:17 MPV 9.5 fL (7.4-10.4) 09/01/22 08:17 Neut % (Auto) 81.2 % 09/01/22 08:17 Lymph % (Auto) 11.4 % 09/01/22 08:17 [place] % (Auto) 4.9 % 09/01/22 08:17 Eos % (Auto) 1.5 % 09/01/22 08:17 Baso % (Auto) 0.6 % 09/01/22 08:17 Neut # (Auto) 8.82 10^3/uL (1.8-7.7) H 09/01/22 08:17 Lymph # (Auto) 1.2 10^3/uL (0.8-4.8) 09/01/22 08:17 [place] # (Auto) 0.5 10^3/uL (0.2-0.9) 09/01/22 08:17 Eos # (Auto) 0.2 10^3/uL (0.0-0.8) 09/01/22 08:17 Baso # (Auto) 0.1 10^3/uL (0.0-0.1) 09/01/22 08:17 Nucleated RBC % (auto) 0 % 09/01/22 08:17 Nucleated RBCs # 0.0 /100WBC 09/01/22 08:17 Sodium 135 mmol/L (136-145) L 09/01/22 08:17 Potassium 4.2 mmol/L (3.5-5.1) 09/01/22 08:17 Chloride 100 mmol/L (98-107) 09/01/22 08:17 Carbon Dioxide 25 mmol/L (22-29) 09/01/22 08:17 Anion Gap 14.2 (5-19) 09/01/22 08:17 BUN 19 mg/dL (8-23) 09/01/22 08:17 Creatinine 0.7 mg/dL (0.5-0.9) 09/01/22 08:17 GFR Calculation Not Reportable 09/01/22 08:17 Glucose 122 mg/dL (65-115) H 09/01/22 08:17 Calculated Osmolality 284 mOsm/kg (285-295) L 09/01/22 08:17 Calcium 9.5 mg/dL (8.5-10.5) 09/01/22 08:17 Total Bilirubin 0.6 mg/dL (0.15-1.2) 09/01/22 08:17 AST 24 U/L (0-32) 09/01/22 08:17 ALT 16 U/L (0-33) 09/01/22 08:17 Alkaline Phosphatase 68 U/L (35-105) 09/01/22 08:17 Troponin T Baseline 29 ng/L (0-10) H 09/01/22 13:30 Troponin T 120 Minute 23.83 ng/L (0-10) H 09/01/22 15:12 Delta Troponin T -5.17 ABS# (0-10) L 09/01/22 15:12 NT-Pro-B Natriuret Pep 1404 pg/mL (0-450) H 09/01/22 08:17 Total Protein 6.5 g/dL (6.6-8.7) L 09/01/22 08:17 Albumin 3.4 g/dL (3.5-5.2) L 09/01/22 08:17 Globulin 3.1 g/dL (1.3-4.6) 09/01/22 08:17 EKG 1: My Interpretation: Atrial fibrillation with rapid ventricular rate. Features of LVH. Left axis deviation. Nonspecific ST-T changes. EKG computer-generated impression: Chest X-Ray 09/01/22 08:33 Impression: 1. Minimal patchy peripheral left lung opacity which could represent atelectasis and/or pneumonia. 2. Atherosclerosis and hyperinflation. A&P Assessment and plan (1) Intermittent atrial fibrillation: For better control of the heart rate, I may start the patient on metoprolol 25 mg p.o. twice daily in addition to sotalol. Her heart rate and blood pressure needs to be closely monitored on telemetry. (2) Acute on chronic diastolic (congestive) heart failure: She may be carefully treated with IV diuretics. Most likely this is related to the atrial fibrillation. Possibility of her having underlying coronary ischemia causing the pain is a consideration. However most likely this is related to the arrhythmia. She had some cardiac work-up in [place]. We will try to get those results. Patient had echocardiogram done few weeks ago (3) Mycobacterium avium complex: May continue the current medications. Management as per the primary. (4) Bronchiectasis: As mentioned above. Qualifiers: Bronchiectasis type: with acute exacerbation Qualified Code(s): J47.1 - Bronchiectasis with (acute) exacerbation (5) COPD (chronic obstructive pulmonary disease): Continue on the current management. Plan Based on the patient's clinical progress, further recommendations will be made. Thank you for the opportunity to evaluate this patient and make these recommendations. Coding Level of Care Code Acute Preschool Aide for Lexie Fwkalie History Expanded Problem Focused Exam Detailed Medical Decision Making Moderate Complexity Diagnoses Intermittent atrial fibrillation I48.0 Acute on chronic diastolic (congestive) heart failure I50.33 Mycobacterium avium complex A31.0 Bronchiectasis J47.1 Bronchiectasis type: with acute exacerbation COPD (chronic obstructive pulmonary disease) J44.9
--- NOTE | 2022-09-01 17:13 | PC.NURSE ---
Physician orders: Metoprolol 25mg BID first dose NOW
[2022-09-01] MEDS: piperacillin-tazobactam 3.375 GM in sodium chloride 0.9% (plus) 50 ML IV (17:15)
[2022-09-01] MEDS: vancomycin 1,250 MG/250 ML PIGGYBACK 200 MG IV (17:15)
[2022-09-01] MEDS: metoprolol tartrate 25 mg Tablet PO ×2 (17:33→21:37)
[2022-09-01] MEDS: pantoprazole DR 40 mg Tablet PO (17:33)
[2022-09-01] MEDS: calcium carbonate 500 mg Chew Tablet 1000 MG PO (17:33)
[2022-09-01 20:25] LABS: Troponin 5 6HR 24.17 ng/L (0-10)
[2022-09-01 20:40] LABS: Troponin 5 6HR Delta -4.83 ng/L (0-12)
[2022-09-01] MEDS: cetirizine 10 mg Tablet PO (21:37)
[2022-09-01] MEDS: montelukast sodium 10 mg Tablet PO (21:37)
[2022-09-01] MEDS: apixaban 5 mg Tablet PO (21:37)
[2022-09-01] MEDS: docusate sodium 100 mg Capsule PO (21:37)
[2022-09-01] MEDS: diphenhydrAMINE 25 mg Capsule PO (21:43)
[2022-09-01] MEDS: budesonide 0.5 mg/2 mL Neb INHALATION (22:25)
[2022-09-01] MEDS: ipratropium-albuterol 3 mL Neb INHALATION (22:25)
[2022-09-02] VITALS (110 sets, daily range): BP systolic 92–151; BP diastolic 57–84; PULSE 59–121; RESP 13–33; TEMP 36.6–36.9; O2SAT 97–100
[2022-09-02] MEDS: piperacillin-tazobactam 3.375 GM in sodium chloride 0.9% (plus) 50 ML IV ×3 (01:00→16:11)
[2022-09-02 05:39] LABS: Basophils # 0.1 10^3/uL (0.0-0.1); Basophils % 0.6 %; Eosinophils # 0.1 10^3/uL (0.0-0.8); Eosinophils % 1.2 %; Hematocrit 34.7 % (37.0-47.0); Hemoglobin 10.8 g/dL (11.5-15.3); Lymphocytes # 1.6 10^3/uL (0.8-4.8); Lymphocytes % 16.7 %; Mean Corpuscular HGB Conc 31.1 g/dL (30.0-36.0); Mean Corpuscular Hemoglobin 30.9 pg (28.0-34.0); Mean Corpuscular Volume 99.4 fl (81-99); Mean Platelet Volume 9.2 fL (7.4-10.4); Monocytes # 0.9 10^3/uL (0.2-0.9); Monocytes % 9.4 %; Neutrophils # 6.85 10^3/uL (1.8-7.7); Neutrophils % 71.8 %; Nucleated Red Blood Cells % 0 %; Platelet Count 333 10^3/cmm (130-400); Red Blood Count 3.49 10^6/uL (4.1-5.3); Red Cell Distribution Width 14.2 % (12.1-15.1); White Blood Count 9.5 10^3/uL (4.0-10.0)
[2022-09-02] MEDS: pantoprazole DR 40 mg Tablet PO (05:47)
[2022-09-02 06:11] LABS: Anion Gap 12.1 (5-19); Blood Urea Nitrogen 16 mg/dL (8-23); Calcium 9.4 mg/dL (8.5-10.5); Carbon Dioxide 29 mmol/L (22-29); Chloride 106 mmol/L (98-107); Glucose 102 mg/dL (65-115); Magnesium 2.1 mg/dL (1.7-2.3); Osmolality Calculated 297 mOsm/kg (285-295); Phosphorus 3.4 mg/dL (2.5-4.5); Potassium 4.1 mmol/L (3.5-5.1); Sodium 143 mmol/L (136-145); Thyroid Stimulating Hormone 1.39 uIU/mL (0.27-4.20)
[2022-09-02] MEDS: ipratropium-albuterol 3 mL Neb INHALATION ×3 (08:26→20:50)
[2022-09-02] MEDS: budesonide 0.5 mg/2 mL Neb INHALATION ×2 (08:27→20:50)
[2022-09-02 08:30] LABS: Adenovirus Not Detected (NOT DETECT); Chlamydia Pneumoniae Not Detected (NOT DETECT); Coronavirus 229E,HKU1,NL63,OC4 Not Detected (NOT DETECT); Human Metapneumovirus Not Detected (NOT DETECT); Human Rhinovirus/Enterovirus Not Detected (NOT DETECT); Influenza A Not Detected (NOT DETECT); Influenza A H1 Not Detected (NOT DETECT); Influenza A H1-2009 Not Detected (NOT DETECT); Influenza A H3 Not Detected (NOT DETECT); Influenza B Not Detected (NOT DETECT); Mycoplasma Pneumoniae Not Detected (NOT DETECT); Parainfluenza Virus Type 1 Not Detected (NOT DETECT); Parainfluenza Virus Type 2 Not Detected (NOT DETECT); Parainfluenza Virus Type 3 Not Detected (NOT DETECT); Parainfluenza Virus Type 4 Not Detected (NOT DETECT); Respiratory Syncytial Virus A Not Detected (NOT DETECT); Respiratory Syncytial Virus B Not Detected (NOT DETECT); SARS-COV-2 Not Detected (NOT DETECT)
[2022-09-02] MEDS: calcium carbonate 500 mg Chew Tablet 1000 MG PO ×2 (09:23→17:48)
[2022-09-02] MEDS: sotalol 80 mg Tablet 40 MG PO ×2 (09:24→17:48)
[2022-09-02] MEDS: ferrous sulfate EC 325 mg Tablet PO (09:25)
[2022-09-02] MEDS: metoprolol tartrate 25 mg Tablet PO ×2 (09:26→20:25)
[2022-09-02] MEDS: apixaban 5 mg Tablet PO ×2 (10:03→20:25)
--- NOTE | 2022-09-02 11:17 | ECG_ITS ---
[facility] Test Date: 2022-09-02 Pat Name: Juli Suresh Department: Room: 105 Gender: Female Regulatory Product Manager: : 1940 Requested By: Katheryn Palafox Order Number: [id number] Rey MD: Henry Acharya M.D. Measurements Intervals [place] Rate: 65 P: 64 MI: 170 QRS: -38 QRSD: 110 T: 44 QT: 418 QTc: 436 Interpretive Statements SINUS RHYTHM WITH SINUS ARRHYTHMIA LEFT AXIS DEVIATION [QRS AXIS < -30] INCOMPLETE RIGHT BUNDLE BRANCH BLOCK [90+ ms QRS DURATION, TERMINAL R IN V1/V2, 40+ ms S IN I/aVL/V4/V5/V6] LEFT VENTRICULAR HYPERTROPHY AND ST-T CHANGE [VOLTAGE CRITERIA PLUS ST/T ABNORMALITY] POSSIBLE SEPTAL MYOCARDIAL INFARCTION , OF INDETERMINATE AGE [30 ms Q WAVE IN V1/V2] Compared to ECG 09/01/2022 15:49:19 Incomplete right bundle-branch block now present ST (T wave) deviation now present Myocardial infarct finding now present Atrial fibrillation no longer present T-wave abnormality no longer present Electronically Signed On 09-03-2022 18:17:12 REHAB MANAGER by Henry Acharya M.D. [email or web address]
[2022-09-02] MEDS: vancomycin 1,250 MG/250 ML PIGGYBACK 200 MG IV (11:49)
--- NOTE | 2022-09-02 15:42 | PM.PN ---
Subjective Subjective: Patient was seen this morning, she remained in A. fib, heart rates do peaked into the 130s at times, she does feel a lot better, but does complain of weakness, fatigue, shortness of breath, lasting a few feet, which is not her normal she is very independent, she does not that she can walk a mile if she can Vitals/I&O/Wt Last Vital Signs Temp 98.1 F 09/02/22 11:37 Pulse 67 09/02/22 14:49 Resp 20 H 09/02/22 14:49 BP 137/83 09/02/22 11:37 Pulse Ox 98 09/02/22 14:49 O2 Del Method 09/02/22 14:49 O2 Flow Rate 2 09/02/22 14:49 09/02/22 09/02/22 09/02/22 06:59 14:59 22:59 Intake Total 170 / 795.708 410 / 410 250 / 660 Balance 170 / 595.708 410 / 410 250 / 660 Weight last 48 hrs Weight 69.485 kg Weight 81.647 kg Physical Exam Const: COMMON NORMALS: no acute distress and patient oriented x3 Resp: COMMON NORMALS: normal respiratory effort, No retractions and No use of accessory muscles Cardio: COMMON NORMALS: regular rate, regular rhythm, S1 normal heart sound present and S2 normal heart sound present RATE: regular rate RHYTHM: regular rhythm HEART SOUNDS: S1 normal heart sound present and S2 normal heart sound present GI: COMMON NORMALS: Normal to inspection, nondistended, normoactive bowel sounds present and non-tender Extremity: COMMON NORMALS: no pedal edema Neuro: COMMON NORMALS: patient oriented x3 Psych: COMMON NORMALS: mental status grossly normal Data 09/02/22 04:55 09/02/22 04:55 Micro: Microbiology 09/01/22 22:25 Bacterial Antigens - Final Urine,Clean Catch 09/01/22 16:45 Blood Culture - Preliminary Blood SPECIMEN COLLECTED 09/01/22 16:35 Blood Culture - Preliminary Blood SPECIMEN COLLECTED A&P Assessment and plan (1) Shortness of breath: Predominantly secondary to onset of A. fib with RVR this morning, awaking her from sleep. Has had some slight increase in sputum production for the past week or so without other described episodes of shortness of breath however. Findings on recent PET scanning suggestive of inflammatory process. Known to have chronic bronchiectasis secondary to history of MAC and follows with pulmonology locally with Dr. Meredith and cardiology in [place] Dr. Miriam Neville. See plans below for management of atrial fibrillation, pneumonia, bronchiectasis (2) Atrial fibrillation with rapid ventricular response: Has a longstanding history of intermittent atrial fibrillation but usually in sinus rhythm on sotalol therapy. Has had several episodes of onset of atrial fibrillation this year sometimes at times of bronchiectasis exacerbation and once with significant anemia requiring transfusion in May of this year. Rate today as high as 150s initially, associated with low blood pressures, which improved after better rate control, and significant symptoms of shortness of breath and unease even without significant tachycardia. Chronically on Sotalol 40mg bid and chronic anticoagulation. Had been on 80 mg twice daily previously but no recent dosage adjustments. Follows with a color making supervisor in [place], [place]. Earlier this year had been on other antihypertensives including metoprolol, diltiazem, amlodipine and hydralazine but these were stopped in September and March of this year due to development of low blood pressures. In addition to sotalol currently on Lasix therapy 3 times a week. In the emergency room today, received addidtional 40mg dose of sotalol, cardizem push and cardizem drip was initiated with persistent A. fib with RVR notable with minimal exertion. QTC 470-480 on EKGs thus far Cardiology consultation, discussed with Dr. Acharya, to assist with management given degree of symptoms Presently we will continue sotalol though may have adjust chronic dosing Serial EKGs to monitor QTc interval Telemetry monitoring Need to keep in mind chronic azithromycin therapy Records have been requested from color making supervisor Dr. Neville Reports that she had an echocardiogram sometime within the last couple of weeks; hopefully we are able to get those records Serial cardiac enzymes, no known history of coronary artery disease Will give another 20 mg IV push Lasix today (3) Pneumonia: Or other postinflammatory process noted on PET imaging done 08/21/2022 as described above involving both the left upper lobe and right middle lobe. Organism unknown. Present on admission. Reviewed with pulmonology for their recommendations under the circumstances. Sputum gram stain and culture Collect blood cultures Broad-spectrum antibiotics with vancomycin and Zosyn currently Continue usual azithromycin Not currently on inhaled tobramycin, on a 28-day cycle off and on Will check bacterial antigens Respiratory viral panel so far unremarkable Pulmonary toilet to include inhaled steroids Respiratory therapy assess and treat; has required vest therapy in the past Dr. Meredith is available for consultation as needed (4) Bronchiectasis: Chronic, likely with acute exacerbation that has been developing over time secondary to above. Always has symptoms and is on oxygen therapy but does describe some increase in sputum production and a darker colored sputum than usual for the last week or so. Known history of MAC, follows with Dr Meredith. On chronic azithromycin three times per week. History of stenotrophomonas and haemophilus colonization for which she is on chronic tobramycin therapy 28 days on/off. Also on scheduled duonebs, prn albuterol, Trelegy Ellipta, cetirizine, singulair, benzonatate. Takes steroids when needed but last course was about a year ago. Scheduled and as needed breathing treatments to continue Continue home allergy medicines and usual symptom control Vest therapy if needed If not improving overall, can consider systemic steroids given gastritis and upper GI bleed a few months ago will try to hold off unless necessary If systemic steroids initiated we will need to monitor blood glucose levels as well as for GI bleeding On oxygen therapy at 3 L by nasal cannula usually Qualifiers: Bronchiectasis type: with acute exacerbation Qualified Code(s): J47.1 - Bronchiectasis with (acute) exacerbation (5) Chronic anticoagulation: With eliquis Continue home Eliquis which will provide appropriate VTE (6) Anemia: History of iron deficiency anemia on chronic iron replacement, currently normal hemoglobin but received blood transfusion in May of this year. Had EGD and colonoscopy that identified gastritis and some polyps/diverticulosis. Reports black stools since initiating iron. No recent bright red blood or other notable bleeding Continue iron therapy Monitor hemoglobin for drop, particularly if need to initiate steroids Continue chronic PPI Qualifiers: Anemia type: iron deficiency Iron deficiency anemia type: chronic blood loss Qualified Code(s): D50.0 - Iron deficiency anemia secondary to blood loss (chronic) Plan Inpatient admission Continue other home medications as ordered Anticipate discharge home with close outpatient follow-up, possibly with home care services depending on clinical course. Patient lives alone but has good family support. She is chronically on oxygen and has a nebulizer at home. Will need follow-up with Marva Jamison/Ananya Tirado at [facility], Dr. Miriam Neville in [place] her color making supervisor and Dr. Meredith here her [employer]. Findings, concerns and plans including anticipated cardiology consultation, plan for antibiotics as per Dr. Meredith's recommendations and results of recent PET scan done at [facility] were discussed with patient and her daughter and both were given an opportunity to ask questions Supportive care otherwise Full code Plan for today better heart rate control, 1 dose of Lasix continue antibiotic therapy, follow cultures Attestations Medical Necessity Statement*: Patient requires hospitalization for pneumonia, A. fib, fluid overload Coding Level of Care Code Acute Housing Quality Standard Inspector for Chg Fwd Diagnoses Shortness of breath R06.02 Atrial fibrillation with rapid ventricular response I48.91 Pneumonia J18.9 Bronchiectasis J47.1 Bronchiectasis type: with acute exacerbation Chronic anticoagulation Z79.01 Anemia D50.0 Anemia type: iron deficiency Iron deficiency anemia type: chronic blood loss
[2022-09-02] MEDS: FUROsemide 10 mg/mL SDV 2mL 20 MG IVP (16:09)
[2022-09-02] MEDS: diphenhydrAMINE 25 mg Capsule PO (20:25)
[2022-09-02] MEDS: cetirizine 10 mg Tablet PO (20:28)
[2022-09-02] MEDS: docusate sodium 100 mg Capsule PO (20:28)
[2022-09-02] MEDS: montelukast sodium 10 mg Tablet PO (20:28)
--- NOTE | 2022-09-02 23:33 | PM.PN ---
Subjective Subjective: The patient is feeling better. She seems to be in intermittent atrial fibrillation. No new symptoms Medications: Medication Review Details: Current Medications Acetaminophen (Acetaminophen 500 Mg Tablet) 500 mg PO Q6H PRN PRN Reason: MILD PAIN/FEVER Albuterol Sulfate (Albuterol 2.5 Mg/3 Ml Neb) 2.5 mg INHALATION Q4H.RESPIRATORY PRN PRN Reason: SHORTNESS OF BREATH Albuterol/Ipratropium (Ipratropium-Albuterol 3 Ml Neb) 3 ml INHALATION Q6H.RESP BHUPINDER Last Admin: 09/02/22 20:50 Dose: 3 ml Apixaban (Apixaban 5 Mg Tablet) 5 mg PO BID@0900,2100 BHUPINDER Last Admin: 09/02/22 20:25 Dose: 5 mg Azithromycin (Azithromycin 250 Mg Tablet) 250 mg PO QMWF BHUPINDER; Protocol Benzonatate (Benzonatate 100 Mg Capsule) 100 mg PO BID PRN PRN Reason: Cough Budesonide (Budesonide 0.5 Mg/2 Ml Neb) 0.5 mg INHALATION BID.RESPIRATORY BHUPINDER Last Admin: 09/02/22 20:50 Dose: 0.5 mg Calcium Carbonate (Calcium Carbonate 500 Mg Chew Tablet) 1,000 mg PO BID BHUPINDER Last Admin: 09/02/22 17:48 Dose: 1,000 mg Cetirizine HCl (Cetirizine 10 Mg Tablet) 10 mg PO BEDTIME BHUPINDER Last Admin: 09/02/22 20:28 Dose: 10 mg Diphenhydramine HCl (Diphenhydramine 25 Mg Capsule) 25 mg PO TID PRN PRN Reason: Allergy Symptoms Last Admin: 09/02/22 20:25 Dose: 25 mg Docusate Sodium (Docusate Sodium 100 Mg Capsule) 100 mg PO BEDTIME BHUPINDER Last Admin: 09/02/22 20:28 Dose: 100 mg Ferrous Sulfate (Ferrous Sulfate Ec 325 Mg Tablet) 325 mg PO DAILY BHUPINDER Last Admin: 09/02/22 09:25 Dose: 325 mg Piperacillin Sod/Tazobactam (Sod 3.375 gm/ Sodium Chloride) 50 mls @ 12.5 mls/hr IV Q8H BHUPINDER; Protocol Last Infusion: 09/02/22 20:16 Dose: Infused Vancomycin/PEG/NADA/Lysine/Water (Vancocin) 1,250 mg in 250 mls @ 200 mls/hr IV Q18H BHUPINDER Last Infusion: 09/02/22 15:24 Dose: Infused Metoprolol Tartrate (Metoprolol Tartrate 1 Mg/1 Ml Sdv 5 Ml) 5 mg IVP Q4H PRN PRN Reason: HR >/=110 Metoprolol Tartrate (Metoprolol Tartrate 25 Mg Tablet) 25 mg PO BID@0900,2100 [facility] Last Admin: 09/02/22 20:25 Dose: 25 mg Montelukast Sodium (Montelukast Sodium 10 Mg Tablet) 10 mg PO BEDTIME [facility] Last Admin: 09/02/22 20:28 Dose: 10 mg Multivitamins/Minerals (Multivitamin W/Minerals Tablet) 1 tab PO DAILY [facility] Last Admin: 09/02/22 09:24 Dose: 1 tab Non-Formulary Medication (Vzqushrqhnf-Lrqzyxfln-Uiapetqc [Trelegy Ellipta]) 1 inh INHALATION BEDTIME BHUPINDER Ondansetron HCl (Ondansetron 2 Mg/Ml Sdv 2 Ml) 4 mg IVP Q8H PRN PRN Reason: vomiting, or N/V if npo Pantoprazole Sodium (Pantoprazole Dr 40 Mg Tablet) 40 mg PO QAM [facility] Last Admin: 09/02/22 05:47 Dose: 40 mg Potassium Chloride (Potassium Chloride Er 20 Meq Tablet) 20 meq PO MoWeFr@0900 [facility] Simethicone (Simethicone 80 Mg Chew) 80 mg PO DAILY PRN PRN Reason: bloating Sotalol HCl (Sotalol 80 Mg Tablet) 40 mg PO BID [facility] Last Admin: 09/02/22 17:48 Dose: 40 mg Vitals/I&O/Wt Last Vital Signs Temp 98.1 F 09/02/22 19:47 Pulse 64 09/02/22 20:51 Resp 24 H 09/02/22 20:51 BP 105/69 09/02/22 19:40 Pulse Ox 98 09/02/22 20:51 O2 Del Method 09/02/22 20:51 O2 Flow Rate 2 09/02/22 20:51 09/02/22 09/02/22 09/03/22 14:59 22:59 06:59 Intake Total 410 / 410 540 / 950 Balance 410 / 410 540 / 950 Weight last 48 hrs Weight 153 lb 3 oz Weight 180 lb Physical Exam Narrative: GENERAL: The patient is alert and oriented times three. Not in any acute distress. HEENT: No significant pallor, icterus or lymphadenopathy.Oral cavity: There are no mucous membrane lesions. NECK: Trachea appears to be central. No masses noted. No JVD or thyromegaly appreciated. RESPIRATORY: Breath sounds are heard bilaterally with no rales or rhonchi BREASTS: Deferred. HEART: The heart sounds are normal. No S3 or S4. Short systolic murmur at the left sternal border. No pericardial rub ABDOMEN: No vessel pulsations or distention. No tenderness. No organomegaly appreciated. Bowel sounds are normally heard. : Deferred. RECTAL: Deferred. LYMPHATIC: No lymphadenopathy noted in the neck. EXTREMITIES: No edema or cyanosis. No clubbing. MUSCULOSKELETAL: No acute joint deformities or swelling SKIN: There are no significant rashes or ecchymosis NEUROPSYCHIATRIC: The patient is alert and oriented x3. Appears to be in a good mood. No tremors or rigidity noted. Data 09/02/22 04:55 09/02/22 04:55 Micro: Microbiology 09/01/22 16:45 Blood Culture - Preliminary Blood NEGATIVE TO DATE 09/01/22 16:35 Blood Culture - Preliminary Blood NEGATIVE TO DATE 09/01/22 22:25 Bacterial Antigens - Final Urine,Clean Catch A&P Assessment and plan (1) Intermittent atrial fibrillation: Patient seems to be tolerating the metoprolol so far well. We will continue the same. The dose of sotalol be kept at 40mg twice daily. (2) Acute on chronic diastolic (congestive) heart failure: Currently compensated. Continue on the current management. 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 Management as per the primary. (4) Bronchiectasis: As mentioned above. Qualifiers: Bronchiectasis type: with acute exacerbation Qualified Code(s): J47.1 - Bronchiectasis with (acute) exacerbation (5) COPD (chronic obstructive pulmonary disease): Continue on the current management. Plan Will continue on the current medications for the time being. Continue to monitor on telemetry. May have to increase the dose of metoprolol, if the blood pressure tolerates Attestations Medical Necessity Statement*: Patient requires continued hospital stay for close monitoring and further management Coding Level of Care Code Acute Shift Supervisor Film Processing for Chg Fwd History Expanded Problem Focused Exam Expanded Problem Focused Medical Decision Making Moderate Complexity Diagnoses Intermittent atrial fibrillation I48.0 Acute on chronic diastolic (congestive) heart failure I50.33 Mycobacterium avium complex A31.0 Bronchiectasis J47.1 Bronchiectasis type: with acute exacerbation COPD (chronic obstructive pulmonary disease) J44.9
[2022-09-03] VITALS (58 sets, daily range): BP systolic 125–138; BP diastolic 60–72; PULSE 53–83; RESP 15–23; TEMP 36.6–36.7; O2SAT 93–100
[2022-09-03] MEDS: piperacillin-tazobactam 3.375 GM in sodium chloride 0.9% (plus) 50 ML IV ×2 (01:17→09:45)
[2022-09-03 04:51] LABS: Anion Gap 13.6 (5-19); Blood Urea Nitrogen 22 mg/dL (8-23); Calcium 8.7 mg/dL (8.5-10.5); Carbon Dioxide 28 mmol/L (22-29); Chloride 103 mmol/L (98-107); Glucose 102 mg/dL (65-115); NT Pro B Type Natriuretic Pept 2146 pg/mL (0-450); Osmolality Calculated 296 mOsm/kg (285-295); Potassium 3.6 mmol/L (3.5-5.1); Sodium 141 mmol/L (136-145)
[2022-09-03] MEDS: vancomycin 1,250 MG/250 ML PIGGYBACK 200 MG IV (05:35)
[2022-09-03] MEDS: pantoprazole DR 40 mg Tablet PO (06:43)
[2022-09-03] MEDS: ipratropium-albuterol 3 mL Neb INHALATION ×2 (08:31→14:34)
[2022-09-03] MEDS: budesonide 0.5 mg/2 mL Neb INHALATION (08:31)
[2022-09-03] MEDS: apixaban 5 mg Tablet PO (09:43)
[2022-09-03] MEDS: sotalol 80 mg Tablet 40 MG PO (09:43)
[2022-09-03] MEDS: calcium carbonate 500 mg Chew Tablet 1000 MG PO (09:43)
[2022-09-03] MEDS: metoprolol tartrate 25 mg Tablet PO (09:43)
[2022-09-03] MEDS: ferrous sulfate EC 325 mg Tablet PO (09:44)
[2022-09-03] MEDS: potassium chloride ER 20 mEq Tablet PO (09:44)
--- NOTE | 2022-09-03 10:00 | ECG_ITS ---
[facility] Test Date: 2022-09-03 Pat Name: Juli Suresh Department: Room: 105 Gender: Female Donor Services Team Leader: : 1940 Requested By: Katheryn Palafox Order Number: [id number] Rey MD: Henry Acharya M.D. Measurements Intervals [place] Rate: 62 P: 71 MS: 182 QRS: -39 QRSD: 128 T: 51 QT: 437 QTc: 445 Interpretive Statements SINUS RHYTHM LEFT AXIS DEVIATION [QRS AXIS < -30] LEFT VENTRICULAR HYPERTROPHY AND ST-T CHANGE [VOLTAGE CRITERIA PLUS ST/T ABNORMALITY] Compared to ECG 09/02/2022 11:17:26 Sinus arrhythmia no longer present Incomplete right bundle-branch block no longer present Myocardial infarct finding no longer present ST (T wave) deviation still present Electronically Signed On 09-03-2022 18:24:53 SITE CONTROLLER by Henry Acharya M.D. [id number]
--- NOTE | 2022-09-03 11:48 | PM.DCS ---
Discharge Providers Date of Admission: 09/01/22 12:57 Date of Discharge: September 03, 2022 Attending Provider at Admission: Katheryn Palafox MD Attending Provider at Discharge: Rob Warren MD Primary Care Provider: Ananya Tirado MD Diagnoses at Discharge Discharge Diagnosis (1) Intermittent atrial fibrillation: Status: Acute (2) Acute on chronic diastolic (congestive) heart failure: Status: Acute (3) Mycobacterium avium complex: Status: Acute Permanent problem details: Diagnosed in 2016 via BAL, completed 1 year of treatment and remains on azithromycin 3 times per week. (4) Bronchiectasis: Status: Chronic Qualifiers: Bronchiectasis type: with acute exacerbation Qualified Code(s): J47.1 - Bronchiectasis with (acute) exacerbation Permanent problem details: Secondary to MAC (5) COPD (chronic obstructive pulmonary disease): Status: Chronic Reason for Visit Reason for Visit: CP/SOB Hospital Course Hospital Course This is a 82-year-old female with a past medical history of atrial fibrillation, history of aortic valve stenosis, anemia, asthma, history of bronchiectasis secondary to MAC, chronic respiratory failure, GERD, hypertension, she is on chronic azithromycin, who presents [facility] for shortness of breath Admitted to shortness of breath multifactorial from fluid overload from A. fib with RVR, pneumonia For A. fib with RVR, she in addition to her sotalol 40 twice daily, metoprolol 25 twice daily was added, overall her heart rates are well controlled remains in A. fib, ambulating without any significant symptomatology. Discharged home on sotalol 40 twice daily with Eliquis without bleeding at home Eliquis, follow-up with pulmonary as outpatient She has a history of MAC infection on chronic azithromycin managed with pulmonary, she had a PET scan done on 08/21/2022 that showed area involving both the left upper and right middle lobe, she had a patchy left lung opacity, concerning for pneumonia on her chest x-ray, managed with broad-spectrum antibiotic therapy remained afebrile, all cultures have been unremarkable. I will discharge her on doxycycline with close follow-up with pulmonary as outpatient For fluid overload related to A. fib, she received intermittent diuresis during the hospitalization, overall clinically improved Physical Exam Const: COMMON NORMALS: no acute distress and patient oriented x3 Resp: COMMON NORMALS: normal respiratory effort, No retractions, No use of accessory muscles and clear to auscultation bilaterally AUSCULTATION: clear to auscultation bilaterally Cardio: COMMON NORMALS: regular rate, S1 normal heart sound present and S2 normal heart sound present RATE: regular rate RHYTHM: abnormal rhythm HEART SOUNDS: S1 normal heart sound present and S2 normal heart sound present GI: COMMON NORMALS: Normal to inspection, nondistended, normoactive bowel sounds present and non-tender Extremity: COMMON NORMALS: no pedal edema Neuro: COMMON NORMALS: patient oriented x3 Psych: COMMON NORMALS: mental status grossly normal Discharge Data Studies Completed and Pending Completed Studies During Hospitalization Category Date Time Status XR chest 1V portable [id number] Stat Exams 09/01/22 08:33 Completed Pending at discharge Category Date Time Status Basic Metabolic Panel AM LABS Lab 09/04/22 04:00 Ordered Basic Metabolic Panel AM LABS Lab 09/05/22 04:00 Ordered Blood Culture Stat Lab 09/01/22 16:45 Results NT Pro B Type Natriuretic Pept QAM Lab 09/04/22 06:00 Ordered NT Pro B Type Natriuretic Pept QAM Lab 09/05/22 06:00 Ordered Sputum Culture and Gram Stain Routine Lab 09/01/22 15:14 Uncollected Vancomycin Trough Timed Lab 09/03/22 21:30 Ordered Radiology Impressions Chest X-Ray 09/01/22 08:33 Impression: 1. Minimal patchy peripheral left lung opacity which could represent atelectasis and/or pneumonia. 2. Atherosclerosis and hyperinflation. Laboratory Results WBC 9.5 10^3/uL (4.0-10.0) 09/02/22 04:55 RBC 3.49 10^6/uL (4.1-5.3) L 09/02/22 04:55 Hgb 10.8 g/dL (11.5-15.3) L 09/02/22 04:55 Hct 34.7 % (37.0-47.0) L 09/02/22 04:55 MCV 99.4 fl (81-99) H 09/02/22 04:55 MCH 30.9 pg (28.0-34.0) 09/02/22 04:55 MCHC 31.1 g/dL (30.0-36.0) 09/02/22 04:55 RDW 14.2 % (12.1-15.1) 09/02/22 04:55 Plt Count 333 10^3/cmm (130-400) 09/02/22 04:55 MPV 9.2 fL (7.4-10.4) 09/02/22 04:55 Neut % (Auto) 71.8 % 09/02/22 04:55 Lymph % (Auto) 16.7 % 09/02/22 04:55 [place] % (Auto) 9.4 % 09/02/22 04:55 Eos % (Auto) 1.2 % 09/02/22 04:55 Baso % (Auto) 0.6 % 09/02/22 04:55 Neut # (Auto) 6.85 10^3/uL (1.8-7.7) 09/02/22 04:55 Lymph # (Auto) 1.6 10^3/uL (0.8-4.8) 09/02/22 04:55 [place] # (Auto) 0.9 10^3/uL (0.2-0.9) 09/02/22 04:55 Eos # (Auto) 0.1 10^3/uL (0.0-0.8) 09/02/22 04:55 Baso # (Auto) 0.1 10^3/uL (0.0-0.1) 09/02/22 04:55 Nucleated RBC % (auto) 0 % 09/02/22 04:55 Nucleated RBCs # 0.0 /100WBC 09/02/22 04:55 Sodium 141 mmol/L (136-145) 09/03/22 02:32 Potassium 3.6 mmol/L (3.5-5.1) 09/03/22 02:32 Chloride 103 mmol/L (98-107) 09/03/22 02:32 Carbon Dioxide 28 mmol/L (22-29) 09/03/22 02:32 Anion Gap 13.6 (5-19) 09/03/22 02:32 BUN 22 mg/dL (8-23) 09/03/22 02:32 Creatinine 1.0 mg/dL (0.5-0.9) H 09/03/22 02:32 GFR Calculation Not Reportable 09/03/22 02:32 Glucose 102 mg/dL (65-115) 09/03/22 02:32 Calculated Osmolality 296 mOsm/kg (285-295) H 09/03/22 02:32 Calcium 8.7 mg/dL (8.5-10.5) 09/03/22 02:32 Phosphorus 3.4 mg/dL (2.5-4.5) 09/02/22 04:55 Magnesium 2.1 mg/dL (1.7-2.3) 09/02/22 04:55 Total Bilirubin 0.6 mg/dL (0.15-1.2) 09/01/22 08:17 AST 24 U/L (0-32) 09/01/22 08:17 ALT 16 U/L (0-33) 09/01/22 08:17 Alkaline Phosphatase 68 U/L (35-105) 09/01/22 08:17 Troponin T Baseline 29 ng/L (0-10) H 09/01/22 13:30 Troponin T 120 Minute 23.83 ng/L (0-10) H 09/01/22 15:12 Delta Troponin T -5.17 ABS# (0-10) L 09/01/22 15:12 Troponin T Hi Sens 6Hr 24.17 ng/L (0-10) H 09/01/22 19:28 Troponin T Hi Sens 6Hr Delta -4.83 ng/L (0-12) L 09/01/22 19:28 NT-Pro-B Natriuret Pep 2146 pg/mL (0-450) H 09/03/22 02:32 Total Protein 6.5 g/dL (6.6-8.7) L 09/01/22 08:17 Albumin 3.4 g/dL (3.5-5.2) L 09/01/22 08:17 Globulin 3.1 g/dL (1.3-4.6) 09/01/22 08:17 TSH 1.39 uIU/mL (0.27-4.20) 09/02/22 04:55 Nasal Influ A H1 2008 PCR Not detected (NOT DETECT) 09/02/22 06:37 Adenovirus (PCR) Not detected (NOT DETECT) 09/02/22 06:37 C. pneumoniae DNA (PCR) Not detected (NOT DETECT) 09/02/22 06:37 Coronavirus 229E (PCR) Not detected (NOT DETECT) 09/02/22 06:37 Human Metapneumovir PCR Not detected (NOT DETECT) 09/02/22 06:37 Influenza A (H1) PCR Not detected (NOT DETECT) 09/02/22 06:37 Influenza A (H3) PCR Not detected (NOT DETECT) 09/02/22 06:37 Influenza Type A (PCR) Not detected (NOT DETECT) 09/02/22 06:37 Influenza Type B (PCR) Not detected (NOT DETECT) 09/02/22 06:37 M. pneumoniae (PCR) Not detected (NOT DETECT) 09/02/22 06:37 Parainfluenza 1 (PCR) Not detected (NOT DETECT) 09/02/22 06:37 Parainfluenza 2 (PCR) Not detected (NOT DETECT) 09/02/22 06:37 Parainfluenza 3 (PCR) Not detected (NOT DETECT) 09/02/22 06:37 Parainfluenza 4 (PCR) Not detected (NOT DETECT) 09/02/22 06:37 RSV Type A (PCR) Not detected (NOT DETECT) 09/02/22 06:37 RSV Type B (PCR) Not detected (NOT DETECT) 09/02/22 06:37 Entero/Rhino (PCR) Not detected (NOT DETECT) 09/02/22 06:37 SARS-CoV-2 (PCR) Not detected (NOT DETECT) 09/02/22 06:37 Vitals Last Vital Signs Temp 98.0 F 09/03/22 07:28 Pulse 57 L 09/03/22 11:00 Resp 20 H 09/03/22 11:00 BP 138/72 09/03/22 11:00 Pulse Ox 93 09/03/22 11:00 O2 Del Method 09/03/22 08:00 O2 Flow Rate 2 09/03/22 08:00 Discharge Plan Discharge Patient Disposition: Home Condition: Stable Prescriptions: New metoprolol tartrate 25 mg Tablet 25 mg PO BID@0900,2100 30 Days Qty: 30 0RF doxycycline hyclate 100 mg tablet 100 mg PO BID 7 Days Qty: 14 0RF Continued multivitamin Tablet 1 tab PO QAM ascorbic acid (vitamin C) 500 mg tablet 1 gm PO BID sotalol 80 mg tablet 40 mg PO BID cetirizine 10 mg tablet 10 mg PO BEDTIME Eliquis 5 mg tablet 5 mg PO BID tobramycin 300 mg/4 mL solution for nebulization 300 mg inhalation BID 28 Days Qty: 224 3RF Rx Instructions: separate doses by at least 6 hours 28 days on and 28 days off montelukast 10 mg tablet 10 mg PO BEDTIME benzonatate 100 mg capsule 100 mg PO BID PRN (Reason: Cough) melatonin 10 mg capsule 10 mg PO BEDTIME (DME) nebulizer See Rx Instructions .Route .MEDSUPPLY Qty: 1 0RF Rx Instructions: As directed ipratropium-albuterol 0.5 mg-3 mg(2.5 mg base)/3 mL solution for nebulization 3 ml inhalation BID Qty: 15 5RF Rx Instructions: use for 28 days then stop for 28 days per pulmonology albuterol sulfate [ProAir HFA] 90 mcg/actuation HFA aerosol inhaler 2 puff INHALATION Q6H PRN (Reason: shortness of breath or wheezing) Qty: 8.5 5RF azithromycin 250 mg tablet See Rx Instructions PO .COMPLEX Qty: 12 3RF Rx Instructions: take 1 tablet by mouth on Mondays, Wednesdays and Fridays Tylenol Ex Str Rapid Release 500 mg Tablet 500 mg PO Q6H PRN (Reason: Pain) Calcium 500 500 mg calcium (1,250 mg) Tablet 1,000 mg PO BID Benadryl 25 mg Capsule 25 mg PO TID PRN (Reason: Allergy Symptoms) FeroSul 325 mg (65 mg iron) tablet 325 mg PO DAILY Nitrostat 0.4 mg Tablet, Sublingual 0.4 mg SUBLINGUAL Q5M PRN (Reason: Chest Pain) Rx Instructions: do not exceed 3 doses per episode Colace 100 mg Capsule 100 mg PO BEDTIME Gas Relief 80 (simethicone) 80 mg Tablet,Chewable 80 mg PO DAILY PRN (Reason: bloating) furosemide 40 mg tablet See Rx Instructions .ROUTE .COMPLEX Rx Instructions: 40mg po daily mon,wed,fri Protonix 40 mg tablet,delayed release (DR/EC) 40 mg PO QAM potassium chloride 20 mEq tablet extended release See Rx Instructions .ROUTE .COMPLEX Rx Instructions: 20 meq po mon,wed and fri Trelegy Ellipta 100-62.5-25 mcg blister with device 1 inh inhalation BEDTIME Monolaurin 300 mg PO DAILY Discharge Orders: Discharge Order (Routine); Ordered 09/03/22 Ordered By: Rob Warren Referrals: Datar,Sb B, MD [Physician] - 1 week Henry Acharya MD [Physician] - 1 week Ananya Tirado MD [Primary Care Provider] - Discharge Diet: Cardiac Discharge Activity: Resume usual activity Patient Instructions: Opioid Safety, Pain Management Activity Restrictions/Additional Instructions: - Please follow-up with Dr. Meredith -Please follow-up with Dr. Acharya -Take metoprolol as prescribed if you feel lightheaded or dizzy call Dr. Acharya's office -Take antibiotics as prescribed -If you have any fevers, chills worsening shortness of breath go to the emergency room Discharge Attestations Time Spent in Discharge Care*: less than 30 min Quality Metrics Clinical Quality Measures [ No reported AMI, CVA or VTE this stay] Coding Level of Care Code Acute Chg FW DC note Diagnoses Intermittent atrial fibrillation I48.0 Acute on chronic diastolic (congestive) heart failure I50.33 Mycobacterium avium complex A31.0 Bronchiectasis J47.1 Bronchiectasis type: with acute exacerbation COPD (chronic obstructive pulmonary disease) J44.9
[2022-09-03] MEDS: FUROsemide 10 mg/mL SDV 2mL 20 MG IVP (12:14)
--- NOTE | 2022-09-03 15:21 | PC.NURSE ---
Discharge Note Patient discharged to home via w/c accompanied by Daughter. Discharge instructions reviewed with patient and/or registration representative. Mobile pharmacy medications and/or prescriptions provided. Belongings/home medications returned.
--- NOTE | 2022-09-03 16:35 | PM.PN ---
Subjective Subjective: Patient is feeling okay. Telemetry shows sinus rhythm. She seems to be tolerating the beta-kentrell and the sotalol so far well. Vitals/I&O/Wt Last Vital Signs Temp 98.0 F 09/03/22 07:28 Pulse 64 09/03/22 14:46 Resp 20 H 09/03/22 13:26 BP 138/72 09/03/22 13:26 Pulse Ox 100 09/03/22 14:00 O2 Del Method 09/03/22 14:00 O2 Flow Rate 2 09/03/22 14:00 09/03/22 09/03/22 09/03/22 06:59 14:59 22:59 Intake Total 170 / 1240 730 / 730 Output Total 100 / 200 300 / 300 Balance 70 / 1040 430 / 430 Weight last 48 hrs Weight 153 lb 3 oz Physical Exam Narrative: GENERAL: The patient is alert and oriented times three. Not in any acute distress. HEENT: No significant pallor, icterus or lymphadenopathy.Oral cavity: There are no mucous membrane lesions. NECK: Trachea appears to be central. No masses noted. No JVD or thyromegaly appreciated. RESPIRATORY: Breath sounds are heard bilaterally with no rales or rhonchi BREASTS: Deferred. HEART: The heart sounds are normal. No S3 or S4. Short systolic murmur at the left sternal border. No pericardial rub ABDOMEN: No vessel pulsations or distention. No tenderness. No organomegaly appreciated. Bowel sounds are normally heard. : Deferred. RECTAL: Deferred. LYMPHATIC: No lymphadenopathy noted in the neck. EXTREMITIES: No edema or cyanosis. No clubbing. MUSCULOSKELETAL: No acute joint deformities or swelling SKIN: There are no significant rashes or ecchymosis NEUROPSYCHIATRIC: The patient is alert and oriented x3. Appears to be in a good mood. No tremors or rigidity noted. Data 09/02/22 04:55 09/03/22 02:32 Other Labs: Laboratory Last Values WBC 9.5 10^3/uL (4.0-10.0) 09/02/22 04:55 RBC 3.49 10^6/uL (4.1-5.3) L 09/02/22 04:55 Hgb 10.8 g/dL (11.5-15.3) L 09/02/22 04:55 Hct 34.7 % (37.0-47.0) L 09/02/22 04:55 MCV 99.4 fl (81-99) H 09/02/22 04:55 MCH 30.9 pg (28.0-34.0) 09/02/22 04:55 MCHC 31.1 g/dL (30.0-36.0) 09/02/22 04:55 RDW 14.2 % (12.1-15.1) 09/02/22 04:55 Plt Count 333 10^3/cmm (130-400) 09/02/22 04:55 MPV 9.2 fL (7.4-10.4) 09/02/22 04:55 Neut % (Auto) 71.8 % 09/02/22 04:55 Lymph % (Auto) 16.7 % 09/02/22 04:55 [place] % (Auto) 9.4 % 09/02/22 04:55 Eos % (Auto) 1.2 % 09/02/22 04:55 Baso % (Auto) 0.6 % 09/02/22 04:55 Neut # (Auto) 6.85 10^3/uL (1.8-7.7) 09/02/22 04:55 Lymph # (Auto) 1.6 10^3/uL (0.8-4.8) 09/02/22 04:55 [place] # (Auto) 0.9 10^3/uL (0.2-0.9) 09/02/22 04:55 Eos # (Auto) 0.1 10^3/uL (0.0-0.8) 09/02/22 04:55 Baso # (Auto) 0.1 10^3/uL (0.0-0.1) 09/02/22 04:55 Nucleated RBC % (auto) 0 % 09/02/22 04:55 Nucleated RBCs # 0.0 /100WBC 09/02/22 04:55 Sodium 141 mmol/L (136-145) 09/03/22 02:32 Potassium 3.6 mmol/L (3.5-5.1) 09/03/22 02:32 Chloride 103 mmol/L (98-107) 09/03/22 02:32 Carbon Dioxide 28 mmol/L (22-29) 09/03/22 02:32 Anion Gap 13.6 (5-19) 09/03/22 02:32 BUN 22 mg/dL (8-23) 09/03/22 02:32 Creatinine 1.0 mg/dL (0.5-0.9) H 09/03/22 02:32 GFR Calculation Not Reportable 09/03/22 02:32 Glucose 102 mg/dL (65-115) 09/03/22 02:32 Calculated Osmolality 296 mOsm/kg (285-295) H 09/03/22 02:32 Calcium 8.7 mg/dL (8.5-10.5) 09/03/22 02:32 Phosphorus 3.4 mg/dL (2.5-4.5) 09/02/22 04:55 Magnesium 2.1 mg/dL (1.7-2.3) 09/02/22 04:55 Total Bilirubin 0.6 mg/dL (0.15-1.2) 09/01/22 08:17 AST 24 U/L (0-32) 09/01/22 08:17 ALT 16 U/L (0-33) 09/01/22 08:17 Alkaline Phosphatase 68 U/L (35-105) 09/01/22 08:17 Troponin T Baseline 29 ng/L (0-10) H 09/01/22 13:30 Troponin T 120 Minute 23.83 ng/L (0-10) H 09/01/22 15:12 Delta Troponin T -5.17 ABS# (0-10) L 09/01/22 15:12 Troponin T Hi Sens 6Hr 24.17 ng/L (0-10) H 09/01/22 19:28 Troponin T Hi Sens 6Hr Delta -4.83 ng/L (0-12) L 09/01/22 19:28 NT-Pro-B Natriuret Pep 2146 pg/mL (0-450) H 09/03/22 02:32 Total Protein 6.5 g/dL (6.6-8.7) L 09/01/22 08:17 Albumin 3.4 g/dL (3.5-5.2) L 09/01/22 08:17 Globulin 3.1 g/dL (1.3-4.6) 09/01/22 08:17 TSH 1.39 uIU/mL (0.27-4.20) 09/02/22 04:55 Nasal Influ A H1 2009 PCR Not detected (NOT DETECT) 09/02/22 06:37 Adenovirus (PCR) Not detected (NOT DETECT) 09/02/22 06:37 C. pneumoniae DNA (PCR) Not detected (NOT DETECT) 09/02/22 06:37 Coronavirus 229E (PCR) Not detected (NOT DETECT) 09/02/22 06:37 Human Metapneumovir PCR Not detected (NOT DETECT) 09/02/22 06:37 Influenza A (H1) PCR Not detected (NOT DETECT) 09/02/22 06:37 Influenza A (H3) PCR Not detected (NOT DETECT) 09/02/22 06:37 Influenza Type A (PCR) Not detected (NOT DETECT) 09/02/22 06:37 Influenza Type B (PCR) Not detected (NOT DETECT) 09/02/22 06:37 M. pneumoniae (PCR) Not detected (NOT DETECT) 09/02/22 06:37 Parainfluenza 1 (PCR) Not detected (NOT DETECT) 09/02/22 06:37 Parainfluenza 2 (PCR) Not detected (NOT DETECT) 09/02/22 06:37 Parainfluenza 3 (PCR) Not detected (NOT DETECT) 09/02/22 06:37 Parainfluenza 4 (PCR) Not detected (NOT DETECT) 09/02/22 06:37 RSV Type A (PCR) Not detected (NOT DETECT) 09/02/22 06:37 RSV Type B (PCR) Not detected (NOT DETECT) 09/02/22 06:37 Entero/Rhino (PCR) Not detected (NOT DETECT) 09/02/22 06:37 SARS-CoV-2 (PCR) Not detected (NOT DETECT) 09/02/22 06:37 Micro: Microbiology 09/01/22 16:45 Blood Culture - Preliminary Blood NEGATIVE TO DATE 09/01/22 16:35 Blood Culture - Preliminary Blood NEGATIVE TO DATE A&P Assessment and plan (1) Intermittent atrial fibrillation: Patient is currently in sinus rhythm. May continue with current medications. (2) Acute on chronic diastolic (congestive) heart failure: Currently compensated. 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 Management as per the primary. (4) Bronchiectasis: As mentioned above. Qualifiers: Bronchiectasis type: with acute exacerbation Qualified Code(s): J47.1 - Bronchiectasis with (acute) exacerbation (5) COPD (chronic obstructive pulmonary disease): Continue on the current management. Plan Since the patient is remaining stable in the sinus rhythm, may be discharged home from a cardiac standpoint. 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
== END 2022-09-03 15:21 | disposition home or self-care (01) | DRG 193 ==
LOC: ER 14:23 → CSU 16:16
PROVIDERS: Admitting Provider Hospitalist; Emergency Provider Family Medicine; PCP Family Medicine; Visit Provider Family Medicine
DX: J18.9 Pneumonia, unspecified organism (principal); I50.33 Acute on chronic diastolic (congestive) heart failure; I48.20 Chronic atrial fibrillation, unspecified; J47.1 Bronchiectasis with (acute) exacerbation; J96.11 Chronic respiratory failure with hypoxia; I11.0 Hypertensive heart disease with heart failure; A31.0 Pulmonary mycobacterial infection; J45.40 Moderate persistent asthma, uncomplicated; Z79.2 Long term (current) use of antibiotics; Z79.01 Long term (current) use of anticoagulants; Z79.51 Long term (current) use of inhaled steroids; K21.9 Gastro-esophageal reflux disease without esophagitis; G47.00 Insomnia, unspecified; Z96.651 Presence of right artificial knee joint; Z87.891 Personal history of nicotine dependence; D50.0 Iron deficiency anemia secondary to blood loss (chronic); I35.0 Nonrheumatic aortic (valve) stenosis
CPT/HCPCS: 36415; 71045; 80048; 80053; 83735; 83880; 84100; 84443; 84484; 85025; 86403; 87040; 87486; 87581; 87633; 92610; 93005; 94640; 94664; 96365; 96375; 97110; 99291; J1940; J2543; J3370; J3490; J7614; J7626; J7644; Q0144

== ENCOUNTER → 2022-09-18 15:33 | Outpatient (BNVA) | payer MEDICARE, OTHER, SELFPAY | PROVIDERS: PCP Family Medicine; Visit Provider Nurse Practitioner Family | DX: R30.9 Painful micturition, unspecified (principal) | CPT/HCPCS: 81000 ==

== ENCOUNTER 2022-09-21 06:00 | Outpatient (RCR) | payer MEDICARE, OTHER, SELFPAY | END 2022-10-21 23:59 | disposition home or self-care (01) | LOC: TPT 06:00 | PROVIDERS: PCP Family Medicine; Visit Provider Internal Medicine Pulmonary Disease | DX: J96.11 Chronic respiratory failure with hypoxia (principal); J47.9 Bronchiectasis, uncomplicated; R53.81 Other malaise | CPT/HCPCS: 97110 ==

== ENCOUNTER → 2022-10-06 10:57 | Outpatient (BNVA) | payer MEDICARE, OTHER, SELFPAY | PROVIDERS: PCP Family Medicine; Visit Provider Nurse Practitioner Family | DX: R09.89 Other specified symptoms and signs involving the circulatory and respiratory systems (principal) | CPT/HCPCS: 71046 ==

== ENCOUNTER → 2022-10-17 13:57 | Outpatient (BNVA) | payer MEDICARE, OTHER, SELFPAY | PROVIDERS: PCP Family Medicine; Visit Provider Nurse Practitioner Family | DX: J18.9 Pneumonia, unspecified organism (principal) | CPT/HCPCS: 71046 ==

== ENCOUNTER → 2022-10-24 13:50 | Outpatient (BNVA) | payer MEDICARE, OTHER, SELFPAY | PROVIDERS: PCP Family Medicine; Visit Provider Nurse Practitioner Family | DX: R91.1 Solitary pulmonary nodule (principal); J18.9 Pneumonia, unspecified organism | CPT/HCPCS: 71046 ==

== ENCOUNTER 2023-01-01 16:03 | Outpatient (CLI) | payer MEDICARE, OTHER, SELFPAY ==
[2023-01-02 09:56] LABS: Nodify Test Kit S
== END 2023-01-01 16:04 | disposition home or self-care (01) ==
LOC: LAB 16:07
PROVIDERS: PCP Nurse Practitioner Family; Visit Provider Internal Medicine Pulmonary Disease
DX: R91.8 Other nonspecific abnormal finding of lung field (principal)
CPT/HCPCS: 36415

== ENCOUNTER 2023-01-13 06:00 | Outpatient (RCR) | payer MEDICARE, OTHER, SELFPAY ==
--- NOTE | 2023-01-02 13:15 | PC.PULMREH ---
Patient and daughter attended Physical Therapy/Pulmonary Rehab Education class.
== END 2023-01-18 23:59 | disposition home or self-care (01) ==
LOC: TPT 06:00
PROVIDERS: PCP Nurse Practitioner Family; Visit Provider Internal Medicine Pulmonary Disease
DX: J44.9 Chronic obstructive pulmonary disease, unspecified (principal)
CPT/HCPCS: 97163

== ENCOUNTER 2023-01-14 15:31 | Outpatient (CLI) | payer MEDICARE, OTHER, SELFPAY ==
--- NOTE | 2023-01-14 15:30 | CT_ITS ---
WS: [email or web address] CT CHEST TECHNIQUE: Noncontrast CT of the chest with coronal and sagittal reformatted images. CLINICAL INFORMATION: J44.9 - Chronic obstructive pulmonary disease, unspecified COMPARISON: CT July 31, 2022 DLP: 306.[address] scans at [facility] use at least one of these dose optimization techniques: automated e xposure control; mA and/or kV adjustment per patient size (includes targeted exams where dose is matc hed to clinical indication); or iterative reconstruction. FINDINGS: Hyperinflation. Pectus excavatum deformity. Subsegmental atelectasis RIGHT middle lobe and lingula br onchiectasis and parenchymal scarring. This is unchanged from previous. Bronchiectasis with tree-in-b ud opacities bilaterally. This is more prominent perihilar regions and upper lobes bilaterally unchan ged from previous. No new suspicious pulmonary opacities. No pleural fluid. No mediastinal or hilar lymphadenopathy. No other significant changes compared to previous. Normal caliber thoracic aorta. Coronary calcification. Small esophageal hiatal hernia. No axillary ly mphadenopathy. Adrenal glands are normal. Cholecystectomy clips. CT/CT chest wo con [id number] IMPRESSION: 1. Bilateral tree-in-bud opacities with bronchiectasis more prominent in the p erihilar regions and upper lobes likely inflammatory in etiology. This is simil ar in appearance compared to previous. 2. Subsegmental atelectasis with bronchiectasis in RIGHT middle lobe and lingu la unchanged. 3. No mediastinal or hilar lymphadenopathy. 4. No other new suspicious findings.
== END 2023-01-14 15:32 | disposition home or self-care (01) ==
LOC: RAD 15:36
PROVIDERS: PCP Family Medicine; Visit Provider Internal Medicine Pulmonary Disease
DX: J44.9 Chronic obstructive pulmonary disease, unspecified (principal); J96.11 Chronic respiratory failure with hypoxia; Z87.891 Personal history of nicotine dependence; J98.11 Atelectasis
CPT/HCPCS: 71250

== ENCOUNTER 2023-01-19 06:00 | Outpatient (RCR) | payer MEDICARE, OTHER, SELFPAY | END 2023-02-18 23:59 | disposition home or self-care (01) | LOC: TPT 06:00 | PROVIDERS: PCP Family Medicine; Visit Provider Internal Medicine Pulmonary Disease | DX: J44.9 Chronic obstructive pulmonary disease, unspecified (principal) | CPT/HCPCS: 97110 ==

== ENCOUNTER 2023-02-06 07:19 | Outpatient (CLI) | payer MEDICARE, OTHER, SELFPAY ==
--- NOTE | 2023-02-06 07:00 | CT_ITS ---
WS: [email or web address] CT CERVICAL SPINE HISTORY: M54.2 - Cervicalgia TECHNIQUE: Contiguous 2.0 mm axial imaging performed through the entire cervical spine. Sagittal and coronal reformats also performed. [facility] CT [facility] use at least one of these dose o ptimization techniques: automated exposure control; mA and/or kV adjustment per patient size (include s targeted exams where dose is matched to clinical indication); or iterative reconstruction. DLP: 1204.92 mGy.cm COMPARISON: None available. C3 anterolisthesis by 1.7 mm. C7 anterolisthesis by 2.0 mm. Disc spaces and facet joints are narrowed with osteoarthritis. No fracture. Craniocervical junction is normal. Lateral masses of C1 and C2 are aligned. C2-C3: Bilateral facet joint arthritis. No stenosis. C3-C4: Moderate LEFT and mild RIGHT facet arthropathy. No stenosis. C4-C5: Mild osteophytic ridging and facet arthritis. C5-C6: Mild facet arthritis and LEFT foraminal narrowing. C6-C7: Mild facet arthritis. C7-T1: Normal. Paravertebral soft tissues are negative. Atherosclerotic calcifications intracranial carotid arteries . Bilateral mastoid effusions. CT/CT cervical spin wo con* [id number] IMPRESSION: 1. No acute cervical spine fracture. 2. Multilevel mild to moderate disc space narrowing with facet joint arthritis . No high-grade central stenosis.
--- NOTE | 2023-02-06 07:30 | CT_ITS ---
WS: [email or web address] CT HEAD NONCONTRAST HISTORY: R42 - Dizziness and giddiness TECHNIQUE: Contiguous axial imaging performed through the brain in 2.5 mm imaging. Bone and soft tiss ue windows. Sagittal and coronal reformats reviewed. All CT scans at [facility] use at least one of these dose optimization techniques: automated exposure control; mA and/or kV adjustment per pa tient size (includes targeted exams where dose is matched to clinical indication); or iterative recon struction. DLP: 1204.92 mGy.cm COMPARISON: 02/26/2012 No acute intracranial hemorrhage, midline shift or mass effect. Mild atrophy and small vessel ischemic disease. New since 2012 are bilateral small lacunar infarcts a long the internal capsules. LEFT greater than RIGHT. Ventricles: Normal size with no hydrocephalus. No inferior displacement of cerebellar tonsils. Paranasal sinuses: Complete opacification LEFT sphenoid sinus. Mastoid air cells: Complete opacification of the RIGHT mastoid air cells with fluid. Small amount of fluid on the LEFT. New finding since the prior study from 2011. Calvarium and scalp: Skull is intact with no soft tissue edema or swelling. CT/CT head wo con* [id number] IMPRESSION: 1. No acute intracranial hemorrhage or edema. 2. Mild atrophy and small vessel ischemic disease. 3. Small lacunar infarcts at the genu of the internal capsules. New since 2011 . Lacunar infarcts are remote and chronic in appearance. 4. Complete fluid opacification RIGHT mastoid air cells with a smaller amount on the LEFT. 5. Complete opacification LEFT sphenoid sinus.
== END 2023-02-06 07:20 | disposition home or self-care (01) ==
LOC: RAD 07:23
PROVIDERS: PCP Family Medicine; Visit Provider Nurse Practitioner Family
DX: R42 Dizziness and giddiness (principal); R51.9 Headache, unspecified; M54.2 Cervicalgia; J34.89 Other specified disorders of nose and nasal sinuses; Z86.73 Personal history of transient ischemic attack (TIA), and cerebral infarction without residual deficits; M47.812 Spondylosis without myelopathy or radiculopathy, cervical region; M48.02 Spinal stenosis, cervical region
CPT/HCPCS: 70450; 72125

== ENCOUNTER 2023-02-19 06:00 | Outpatient (RCR) | payer MEDICARE, OTHER, SELFPAY | END 2023-03-20 23:59 | disposition home or self-care (01) | LOC: TPT 06:00 | PROVIDERS: PCP Family Medicine; Visit Provider Internal Medicine Pulmonary Disease | DX: J44.9 Chronic obstructive pulmonary disease, unspecified (principal) | CPT/HCPCS: 97110; 97116 ==

== ENCOUNTER 2023-03-21 06:00 | Outpatient (RCR) | payer MEDICARE, OTHER, SELFPAY | END 2023-04-20 23:59 | disposition home or self-care (01) | LOC: TPT 06:00 | PROVIDERS: Visit Provider Internal Medicine Pulmonary Disease | DX: J44.9 Chronic obstructive pulmonary disease, unspecified (principal) | CPT/HCPCS: 97110 ==

== ENCOUNTER → 2023-03-30 11:33 | Outpatient (BNVA) | payer MEDICARE, OTHER, SELFPAY | PROVIDERS: PCP Family Medicine; Visit Provider Nurse Practitioner Family | DX: R39.9 Unspecified symptoms and signs involving the genitourinary system (principal); N39.0 Urinary tract infection, site not specified | CPT/HCPCS: 81000; 81003 ==

== ENCOUNTER 2023-04-16 11:08 | Outpatient (CLI) | payer MEDICARE, OTHER, SELFPAY ==
--- NOTE | 2023-04-16 11:48 | XR_ITS ---
WS: [email or web address] EXAMINATION: XR chest 2V* [id number] REASON FOR EXAM: J18.9 - Pneumonia, unspecified organism COMPARISON: 10/24/2022 ORDER DATE: 04/16/2023 11:53 AM FINDINGS: Previous pulmonary opacities with small nodules and a larger left upper lobe nodule is are no longer present left hilar density prominence and bilateral perihilar scarring are unchanged. There is diffus e thickening of the left major fissure. Atelectatic fibrotic change seen in the left upper lobe. Ther e are no masses or effusions. The heart is normal. The aortic arch and descending thoracic aorta show calcification and tortuosity. The right shoulder shows erosion, sclerosis and pseudoarthrosis of the eroded medial fiona ral head and glenoid process unchanged. XR/XR chest 2V* [id number] Impression: Changes from previous study and
== END 2023-04-16 11:09 | disposition home or self-care (01) ==
LOC: RAD 11:16
PROVIDERS: PCP Family Medicine; Visit Provider Nurse Practitioner Family
DX: J18.9 Pneumonia, unspecified organism (principal)
CPT/HCPCS: 71046

== ENCOUNTER 2023-05-06 06:00 | Outpatient (RCR) | payer MEDICARE, OTHER, SELFPAY | END 2023-05-21 23:59 | disposition home or self-care (01) | LOC: TPT 06:00 | PROVIDERS: PCP Family Medicine; Visit Provider Nurse Practitioner Family | DX: R26.89 Other abnormalities of gait and mobility (principal) | CPT/HCPCS: 97110; 97116; 97161 ==

== ENCOUNTER 2023-05-22 06:00 | Outpatient (RCR) | payer MEDICARE, OTHER, SELFPAY | END 2023-06-20 23:59 | disposition home or self-care (01) | LOC: TPT 06:00 | PROVIDERS: PCP Family Medicine; Visit Provider Nurse Practitioner Family | DX: R26.89 Other abnormalities of gait and mobility (principal) | CPT/HCPCS: 97110; 97116 ==

== ENCOUNTER → 2023-06-11 11:22 | Outpatient (BNVA) | payer MEDICARE, OTHER, SELFPAY | PROVIDERS: PCP Family Medicine; Visit Provider Nurse Practitioner Family | DX: R05.9 Cough, unspecified (principal); J44.1 Chronic obstructive pulmonary disease with (acute) exacerbation | CPT/HCPCS: 87426 ==

== ENCOUNTER 2023-06-21 06:00 | Outpatient (RCR) | payer MEDICARE, OTHER, SELFPAY | END 2023-07-21 23:59 | disposition home or self-care (01) | LOC: TPT 06:00 | PROVIDERS: PCP Family Medicine; Visit Provider Nurse Practitioner Family | DX: R26.89 Other abnormalities of gait and mobility (principal) | CPT/HCPCS: 97110; 97116 ==

== ENCOUNTER → 2023-06-22 14:54 | Outpatient (BNVA) | payer MEDICARE, OTHER, SELFPAY | PROVIDERS: PCP Family Medicine; Visit Provider Nurse Practitioner Family | DX: J44.1 Chronic obstructive pulmonary disease with (acute) exacerbation (principal) | CPT/HCPCS: 71046 ==

== ENCOUNTER → 2023-06-30 15:03 | Outpatient (BNVA) | payer MEDICARE, OTHER, SELFPAY | PROVIDERS: PCP Family Medicine; Visit Provider Family Medicine | DX: R05.9 Cough, unspecified (principal); J20.9 Acute bronchitis, unspecified | CPT/HCPCS: 87426 ==

== ENCOUNTER → 2023-07-07 12:33 | Outpatient (BNVA) | payer MEDICARE, OTHER, SELFPAY | PROVIDERS: PCP Family Medicine; Visit Provider Nurse Practitioner Family | DX: J44.9 Chronic obstructive pulmonary disease, unspecified (principal); R04.2 Hemoptysis; R68.83 Chills (without fever); R06.2 Wheezing | CPT/HCPCS: 87486; 87581; 87633 ==

== ENCOUNTER 2023-07-13 14:27 | Outpatient (CLI) | payer MEDICARE, OTHER, SELFPAY ==
--- NOTE | 2023-07-13 14:30 | CT_ITS ---
WS: [email or web address] CT chest wo con [id number] HISTORY: J47.1 - Bronchiectasis with (acute) exacerbation TECHNIQUE: Axial imaging performed through the thorax. Coronal and sagittal reformats are submitted. All CT scans at [facility] use at least one of these dose optimization techniques: automated exposure control; mA and/or kV adjustment per patient size (includes targeted exams where dose is mat ched to clinical indication); or iterative reconstruction. CONTRAST: None DLP: 435.31 mGy.cm COMPARISON: 01/14/2023, 07/31/2022 Lungs and central airway: Pulmonary hyperexpansion. Continued patchy opacifications and subcentimeter nodules throughout both lungs. There are a few areas of tree-in-bud airspace disease. Some of the no dules appear slightly more prominent as compared to the prior examination. One of the nodules is slig htly spiculated in the RIGHT lower lobe measuring 7 mm, image 41 of series 4. Mild bronchial wall thi ckening and moderate bronchiectasis in the lingula and RIGHT middle lobe. Pleura: Normal. No pleural effusion. Heart and pericardium: Normal size heart with no pericardial effusion. Mediastinum and dionisio: There are a few small mediastinal and hilar lymph nodes. Some of these contain calcifications. No enlargement or interval change. Vessels: Mild atherosclerosis aorta. Normal sized pulmonary artery. Coronary artery calcifications. Chest wall and lower neck: Mild pectus excavatum deformity encroaching upon the heart. Upper abdomen: Prior cholecystectomy. Osseous structures: Advanced degenerative changes throughout the thoracic and upper lumbar spine. Dis c spaces are narrowed. Advanced degenerative changes involving the RIGHT glenohumeral joint. There is remodeling on a chronic joint destruction. IMPRESSION: 1. Continued focal bronchiectasis with bronchial wall thickening in the lingula and RIGHT middle lobe very similar to the prior examinations from 07/31/2022 and 01/14/2023. 2. Continued patchy opacifications and nodules and tree-in-bud airspace disease. Some of the airspace disease has progressed since 01/14/2023 while other areas have improved. There is a spiculated nodule in the RIGHT lower lobe measuring 7 mm which is new. Recommend follow-up CT in 3 months.
== END 2023-07-13 14:28 | disposition home or self-care (01) ==
PROVIDERS: PCP Family Medicine; Visit Provider Internal Medicine Pulmonary Disease
DX: J47.1 Bronchiectasis with (acute) exacerbation (principal); R91.8 Other nonspecific abnormal finding of lung field; Z01.89 Encounter for other specified special examinations
CPT/HCPCS: 71250; 80053; 80061; 82306; 82607; 83735; 84443; 85025

== ENCOUNTER 2023-07-22 06:00 | Outpatient (RCR) | payer MEDICARE, OTHER, SELFPAY | END 2023-08-20 23:59 | disposition home or self-care (01) | LOC: TPT 06:00 | PROVIDERS: PCP Family Medicine; Visit Provider Nurse Practitioner Family | DX: R26.89 Other abnormalities of gait and mobility (principal) | CPT/HCPCS: 97110; 97116 ==

== ENCOUNTER 2023-08-21 06:00 | Outpatient (RCR) | payer MEDICARE, OTHER, SELFPAY | END 2023-08-28 23:59 | disposition home or self-care (01) | LOC: TPT 06:00 | PROVIDERS: PCP Family Medicine; Visit Provider Nurse Practitioner Family | DX: R26.9 Unspecified abnormalities of gait and mobility (principal) | CPT/HCPCS: 97110; 97116 ==

== ENCOUNTER 2023-09-07 06:00 | Outpatient (RCR) | payer MEDICARE, OTHER, SELFPAY | END 2023-09-20 23:59 | disposition home or self-care (01) | LOC: TPT 06:00 | PROVIDERS: PCP Nurse Practitioner Family; Visit Provider Internal Medicine Pulmonary Disease | DX: J44.9 Chronic obstructive pulmonary disease, unspecified (principal); R53.81 Other malaise | CPT/HCPCS: 97110; 97162 ==

== ENCOUNTER 2023-09-08 11:04 | Outpatient (CLI) | payer MEDICARE, OTHER, SELFPAY ==
--- NOTE | 2023-09-08 11:00 | MM_ITS ---
WS: [email or web address] BILATERAL 3D TOMOSYNTHESIS DIGITAL SCREENING MAMMOGRAPHY WITH CAD CLINICAL INFORMATION: SCREENING HISTORY: Screening mammogram. No current complaints. COMPARISON: 2013 TECHNIQUE: Bilateral CC and MLO views. FINDINGS: Scattered fibroglandular densities bilaterally. No suspicious focal mass, asymmetry, calcifications, or architectural distortion. No evidence of malignancy. Incidental punctate and lucent centered calci fications. Vascular calcification. IMPRESSION: MM/[place] [id number] BI-RADS: 2-Benign FOLLOW UP: 1 Year Follow-up Recommend return to annual screening mammography.
== END 2023-09-08 11:05 | disposition home or self-care (01) ==
LOC: MOBLMAM 11:08
PROVIDERS: PCP Nurse Practitioner Family; Visit Provider Nurse Practitioner Family
DX: Z12.31 Encounter for screening mammogram for malignant neoplasm of breast (principal)
CPT/HCPCS: 77063; 77067

== ENCOUNTER 2023-09-21 06:00 | Outpatient (RCR) | payer MEDICARE, OTHER, SELFPAY | END 2023-10-21 23:59 | disposition home or self-care (01) | LOC: TPT 06:00 | PROVIDERS: PCP Nurse Practitioner Family; Visit Provider Internal Medicine Pulmonary Disease | DX: J44.9 Chronic obstructive pulmonary disease, unspecified (principal); R53.81 Other malaise | CPT/HCPCS: 97110 ==

== ENCOUNTER 2023-10-15 13:54 | Outpatient (CLI) | payer MEDICARE, OTHER, SELFPAY ==
--- NOTE | 2023-10-15 14:00 | CT_ITS ---
WS: [email or web address] CT CHEST TECHNIQUE: Noncontrast CT of the chest with coronal and sagittal reformatted images. CLINICAL INFORMATION: 3 month f/u COMPARISON: CT 07/13/2023 and 01/14/2023 DLP: 488.[address] scans at [facility] use at least one of these dose optimization techniques: automated e xposure control; mA and/or kV adjustment per patient size (includes targeted exams where dose is matc hed to clinical indication); or iterative reconstruction. FINDINGS: Normal caliber thoracic aorta. Aortic calcification. Coronary calcification. Previously described spiculated nodule in RIGHT lower lobe measuring 7 mm has resolved. Stable subple ural nodule in the RIGHT lower lobe laterally measuring 7 mm. Bronchiectasis with tree-in-bud opaciti es in the RIGHT upper lobe and RIGHT middle lobe stable in appearance. Subsegmental atelectasis in th e RIGHT middle lobe. Tree-in-bud opacities with bronchiectasis and subsegmental atelectasis in the li ngula is stable. No new pulmonary parenchymal abnormalities. No significant mediastinal or hilar lymp hadenopathy. No axillary lymphadenopathy. Adrenal glands are normal. Small esophageal hernia. Cholecystectomy. Mild thoracic curve. Mild thora cic kyphosis. IMPRESSION: 1. Moderate chronic emphysematous changes. 2. Spiculated nodule in the RIGHT lower lobe has resolved 3. Stable tree-in-bud opacities with bronchiectasis in the RIGHT middle lobe, RIGHT upper lobe, and lingula. 4. Stable subpleural nodule RIGHT lower lobe laterally measuring 7 mm. 5. No other suspicious findings.
== END 2023-10-15 13:55 | disposition home or self-care (01) ==
LOC: RAD 13:55
PROVIDERS: PCP Nurse Practitioner Family; Visit Provider Internal Medicine Pulmonary Disease
DX: R91.8 Other nonspecific abnormal finding of lung field (principal); J43.9 Emphysema, unspecified; J47.9 Bronchiectasis, uncomplicated
CPT/HCPCS: 71250

== ENCOUNTER 2023-10-22 06:00 | Outpatient (RCR) | payer MEDICARE, OTHER, SELFPAY | END 2023-11-19 23:59 | disposition home or self-care (01) | LOC: TPT 06:00 | PROVIDERS: PCP Nurse Practitioner Family; Visit Provider Internal Medicine Pulmonary Disease | DX: R53.81 Other malaise (principal); J44.9 Chronic obstructive pulmonary disease, unspecified | CPT/HCPCS: 97110 ==

== ENCOUNTER → 2023-11-19 13:42 | Outpatient (BNVA) | payer MEDICARE, OTHER, SELFPAY | PROVIDERS: PCP Nurse Practitioner Family; Visit Provider Family Medicine | DX: R05.9 Cough, unspecified (principal) | CPT/HCPCS: 87400; 87426 ==

== ENCOUNTER → 2023-11-25 16:07 | Outpatient (BNVA) | payer MEDICARE, OTHER, SELFPAY | PROVIDERS: PCP Nurse Practitioner Family; Visit Provider Nurse Practitioner Family | DX: R05.9 Cough, unspecified (principal) | CPT/HCPCS: 71046 ==

== ENCOUNTER → 2024-01-04 11:25 | Outpatient (BNVA) | payer MEDICARE, OTHER, SELFPAY | PROVIDERS: PCP Nurse Practitioner Family; Visit Provider Family Medicine | DX: R50.9 Fever, unspecified (principal); R05.9 Cough, unspecified; J40 Bronchitis, not specified as acute or chronic; Z78.9 Other specified health status; J44.9 Chronic obstructive pulmonary disease, unspecified; I10 Essential (primary) hypertension | CPT/HCPCS: 87400; 87426 ==

== ENCOUNTER → 2024-01-06 13:39 | Outpatient (BNVA) | payer MEDICARE, OTHER, SELFPAY | PROVIDERS: PCP Nurse Practitioner Family; Visit Provider Nurse Practitioner Family | DX: R05.9 Cough, unspecified (principal) | CPT/HCPCS: 87070; 87205 ==

== ENCOUNTER 2024-01-20 06:00 | Outpatient (RCR) | payer MEDICARE, OTHER, SELFPAY | END 2024-02-19 23:59 | disposition home or self-care (01) | LOC: TPT 06:00 | PROVIDERS: PCP Nurse Practitioner Family; Visit Provider Internal Medicine Pulmonary Disease | DX: J44.9 Chronic obstructive pulmonary disease, unspecified (principal); R53.81 Other malaise | CPT/HCPCS: 97110 ==

== ENCOUNTER → 2024-02-04 13:44 | Outpatient (BNVA) | payer MEDICARE, OTHER, SELFPAY | PROVIDERS: PCP Nurse Practitioner Family; Visit Provider Internal Medicine Pulmonary Disease | DX: J44.9 Chronic obstructive pulmonary disease, unspecified (principal); A31.0 Pulmonary mycobacterial infection; J47.1 Bronchiectasis with (acute) exacerbation; J96.11 Chronic respiratory failure with hypoxia; J45.40 Moderate persistent asthma, uncomplicated; D50.0 Iron deficiency anemia secondary to blood loss (chronic); Z87.891 Personal history of nicotine dependence | CPT/HCPCS: 99214 ==

== ENCOUNTER 2024-02-04 14:47 | Outpatient (CLI) | payer MEDICARE, OTHER, SELFPAY ==
--- NOTE | 2024-02-04 14:55 | XR_ITS ---
WS: [email or web address] Right knee, 3 views, 02/04/2024 Clinical Data: M25.561 - Pain in right knee Comparison: None. Findings: The right knee arthroplasty shows good position. No periprosthetic fractures or loosening is seen. Th ere is vascular calcification. XR/XR knee RT 3V* [id number] Impression: Right knee arthroplasty.
--- NOTE | 2024-02-04 14:55 | XR_ITS ---
WS: [email or web address] Left knee, 3 views, 02/04/2024 Clinical Data: M25.561 - Pain in left knee Comparison: None. Findings: The components of the left knee arthroplasty show good position. No periprosthetic fractures or loose sabina is seen. There is vascular calcification. XR/XR knee LT 3V* [id number] Impression: Left knee arthroplasty
== END 2024-02-04 14:48 | disposition home or self-care (01) ==
LOC: RAD 14:49
PROVIDERS: PCP Nurse Practitioner Family; Visit Provider Nurse Practitioner Family
DX: M25.561 Pain in right knee (principal); M25.562 Pain in left knee; M25.862 Other specified joint disorders, left knee; M25.861 Other specified joint disorders, right knee; Z96.653 Presence of artificial knee joint, bilateral
CPT/HCPCS: 73562

== ENCOUNTER 2024-02-10 12:08 | Outpatient (CLI) | payer MEDICARE, OTHER, SELFPAY ==
--- NOTE | 2024-02-10 12:15 | XRR_ITS ---
PROCEDURE INFORMATION: Exam: XR Chest Exam date and time: 02/10/2024 12:25 PM Age: 83 years old Clinical indication: Shortness of breath; Additional info: J47.1 - bronchiectasis with (acute) exacerbation TECHNIQUE: Imaging protocol: Radiologic exam of the chest. Views: 2 views. COMPARISON: CR XR chest 2V* [id number] 11/25/2023 4:21 PM FINDINGS: Lungs: Unremarkable. No consolidation. Pleural spaces: Unremarkable. No pleural effusion. No pneumothorax. Heart/Mediastinum: Unremarkable. No cardiomegaly. Bones/joints: Severe deforming arthropathy right shoulder. Diffuse degenerative disc disease in the thoracic spine. Osteopenia. XR/XR chest 2V* [id number] IMPRESSION: Stable chest.
== END 2024-02-10 12:09 | disposition home or self-care (01) ==
LOC: RAD 12:08
PROVIDERS: PCP Nurse Practitioner Family; Visit Provider Nurse Practitioner Family
DX: J47.1 Bronchiectasis with (acute) exacerbation (principal)
CPT/HCPCS: 71046

== ENCOUNTER 2024-02-20 06:00 | Outpatient (RCR) | payer MEDICARE, OTHER, SELFPAY | END 2024-03-20 23:59 | disposition home or self-care (01) | LOC: TPT 06:00 | PROVIDERS: PCP Nurse Practitioner Family; Visit Provider Internal Medicine Pulmonary Disease | DX: J44.9 Chronic obstructive pulmonary disease, unspecified (principal); R53.81 Other malaise | CPT/HCPCS: 97110 ==

== ENCOUNTER 2024-03-21 06:00 | Outpatient (RCR) | payer MEDICARE, OTHER, SELFPAY | END 2024-04-20 23:59 | disposition home or self-care (01) | LOC: TPT 06:00 | PROVIDERS: PCP Nurse Practitioner Family; Visit Provider Internal Medicine Pulmonary Disease | DX: J44.9 Chronic obstructive pulmonary disease, unspecified (principal); R53.81 Other malaise | CPT/HCPCS: 97110 ==

== ENCOUNTER 2024-04-21 06:00 | Outpatient (RCR) | payer MEDICARE, OTHER, SELFPAY | END 2024-05-21 23:59 | disposition home or self-care (01) | LOC: TPT 06:00 | PROVIDERS: PCP Nurse Practitioner Family; Visit Provider Internal Medicine Pulmonary Disease | DX: J44.9 Chronic obstructive pulmonary disease, unspecified (principal); R53.81 Other malaise | CPT/HCPCS: 97110 ==

== ENCOUNTER → 2024-05-20 11:28 | Outpatient (BNVA) | payer MEDICARE, OTHER, SELFPAY | PROVIDERS: PCP Nurse Practitioner Family; Visit Provider Nurse Practitioner Family | DX: T14.8XXA Other injury of unspecified body region, initial encounter (principal); L08.9 Local infection of the skin and subcutaneous tissue, unspecified; X58.XXXA Exposure to other specified factors, initial encounter | CPT/HCPCS: 87070; 87075; 87205 ==

== ENCOUNTER 2024-05-22 06:00 | Outpatient (RCR) | payer MEDICARE, OTHER, SELFPAY | END 2024-06-20 23:59 | disposition home or self-care (01) | LOC: TPT 06:00 | PROVIDERS: PCP Nurse Practitioner Family; Visit Provider Internal Medicine Pulmonary Disease | DX: J44.9 Chronic obstructive pulmonary disease, unspecified (principal); R53.81 Other malaise | CPT/HCPCS: 97110 ==

== ENCOUNTER 2024-05-24 09:28 | Outpatient (CLI) | payer MEDICARE, OTHER, SELFPAY ==
--- NOTE | 2024-05-24 09:45 | CTR_ITS ---
PROCEDURE INFORMATION: Exam: CT Chest Without Contrast; Diagnostic Exam date and time: 05/24/2024 9:49 AM Age: 83 years old Clinical indication: Condition or disease; Lung condition and disease; Pulmonary nodule, solitary; Additional info: R91.1 - solitary pulmonary nodule TECHNIQUE: Imaging protocol: Diagnostic computed tomography of the chest without contrast. Radiation optimization: All CT scans at this facility use at least one of these dose optimization techniques: automated exposure control; mA and/or kV adjustment per patient size (includes targeted exams where dose is matched to clinical indication); or iterative reconstruction. COMPARISON: 1. CT chest con [id number] 10/15/2023 2:[address] chest con [id number] 07/13/2023 2:45 PM RADIATION DOSE METRICS: Total DLP (mGy-cm): 411.61 FINDINGS: Thyroid: The thyroid gland is normal. Trachea: Airways are patent. Lungs: New innumerable tree-in-bud/centrilobular nodules throughout both lungs, worse in the right upper lobe and bilateral lower lobes. Severe bilateral bronchial wall thickening. Stable chronic bronchiectasis in the right middle lobe and lingula with chronic scarring and punctate calcifications. Stable 7 mm subpleural nodule right lower lobe since June 2023. Bilateral apical capping/scarring. Pleural spaces: No pleural effusions or pneumothorax. Heart: Calcifications of the aortic valve annulus. There is calcification of the mitral valve annulus. Mild cardiomegaly. No pericardial thickening or effusion. Coronary arteries: There is moderate atherosclerotic calcification of the coronary arteries. Mediastinal space: Scattered calcified granulomas throughout the mediastinum are benign. Lymph nodes: 9 mm enlarged lymph node in the AP window, stable. Other slightly prominent mediastinal lymph nodes are also stable. No other adenopathy. Vasculature: Mild diffuse calcific atherosclerosis of the aorta. Aorta is normal in course and caliber. Bovine aortic arch, with a common origin of the left common carotid and brachiocephalic arteries. The pulmonary arteries are normal in course and caliber. Gallbladder and biliary ducts: Cholecystectomy. Bones/joints: Stable pectus excavatum. Stable chronic and severe degenerative changes of the right glenohumeral joint. Moderate multilevel degenerative changes of the spine. No acutely displaced fractures. No joint dislocation. No aggressive osseous lesions. Soft tissues: No acute soft tissue findings. Other findings: No acute findings in the included upper abdominal organs. Right hilar calcified granulomas, benign. CT/CT chest wo con [id number] IMPRESSION: 1. New innumerable tree-in-bud/centrilobular nodules throughout both lungs, worse in the right upper lobe and bilateral lower lobes. These are likely of infectious/inflammatory etiology (alveolitis). 2. Severe acute/chronic bronchitis or reactive airways disease. 3. Stable 7 mm subpleural nodule right lower lobe since June 2023. 4. Incidental findings as above.
== END 2024-05-24 09:29 | disposition home or self-care (01) ==
PROVIDERS: PCP Nurse Practitioner Family; Visit Provider Nurse Practitioner Family
DX: R91.8 Other nonspecific abnormal finding of lung field (principal); J47.9 Bronchiectasis, uncomplicated; I34.81 Nonrheumatic mitral (valve) annulus calcification; J98.59 Other diseases of mediastinum, not elsewhere classified; R59.0 Localized enlarged lymph nodes; Z90.49 Acquired absence of other specified parts of digestive tract; J20.9 Acute bronchitis, unspecified
CPT/HCPCS: 71250

== ENCOUNTER 2024-06-21 06:00 | Outpatient (RCR) | payer MEDICARE, OTHER, SELFPAY | END 2024-07-21 23:59 | disposition home or self-care (01) | LOC: TPT 06:00 | PROVIDERS: PCP Nurse Practitioner Family; Visit Provider Internal Medicine Pulmonary Disease | DX: J44.9 Chronic obstructive pulmonary disease, unspecified (principal); R53.81 Other malaise | CPT/HCPCS: 97110 ==

== ENCOUNTER → 2024-09-07 12:04 | Outpatient (BNVA) | payer MEDICARE, OTHER, SELFPAY | PROVIDERS: PCP Nurse Practitioner Family; Visit Provider Nurse Practitioner Family | DX: Z87.01 Personal history of pneumonia (recurrent) (principal) | CPT/HCPCS: 71046 ==

== ENCOUNTER → 2024-09-08 10:29 | Outpatient (BNVA) | payer MEDICARE, OTHER, SELFPAY | PROVIDERS: PCP Nurse Practitioner Family; Visit Provider Nurse Practitioner Family | DX: R05.9 Cough, unspecified (principal) | CPT/HCPCS: 80053 ==

== ENCOUNTER → 2024-09-20 12:16 | Outpatient (BNVA) | payer MEDICARE, OTHER, SELFPAY | PROVIDERS: PCP Nurse Practitioner Family; Visit Provider Nurse Practitioner Family | DX: R09.89 Other specified symptoms and signs involving the circulatory and respiratory systems (principal); J98.8 Other specified respiratory disorders; J44.9 Chronic obstructive pulmonary disease, unspecified; Z95.0 Presence of cardiac pacemaker | CPT/HCPCS: 71046 ==

== ENCOUNTER → 2024-10-13 10:10 | Outpatient (BNVA) | payer MEDICARE, OTHER, SELFPAY | PROVIDERS: PCP Nurse Practitioner Family; Visit Provider Nurse Practitioner Family | DX: I10 Essential (primary) hypertension (principal); I48.91 Unspecified atrial fibrillation; D50.0 Iron deficiency anemia secondary to blood loss (chronic) | CPT/HCPCS: 80048; 80061; 84443; 85025 ==

== ENCOUNTER → 2024-11-25 14:17 | Outpatient (BNVA) | payer MEDICARE, OTHER, SELFPAY | PROVIDERS: PCP Nurse Practitioner Family; Visit Provider Nurse Practitioner Family | DX: R05.9 Cough, unspecified (principal); J18.9 Pneumonia, unspecified organism | CPT/HCPCS: 71046 ==

== ENCOUNTER → 2025-05-15 15:15 | Outpatient (BNVA) | payer MEDICARE, OTHER, SELFPAY | PROVIDERS: PCP Nurse Practitioner Family; Visit Provider Nurse Practitioner Family | DX: R05.9 Cough, unspecified (principal); Z95.0 Presence of cardiac pacemaker; M47.815 Spondylosis without myelopathy or radiculopathy, thoracolumbar region; M41.9 Scoliosis, unspecified; M85.88 Other specified disorders of bone density and structure, other site | CPT/HCPCS: 71046 ==

== ENCOUNTER → 2025-06-21 15:37 | Outpatient (BNVA) | payer MEDICARE, OTHER, SELFPAY | PROVIDERS: PCP Nurse Practitioner Family; Visit Provider Nurse Practitioner Family | DX: I10 Essential (primary) hypertension (principal); I48.91 Unspecified atrial fibrillation | CPT/HCPCS: 80053; 80061; 82607; 84443; 85025; 85651; 86140 ==

== ENCOUNTER → 2025-09-04 13:32 | Outpatient (BNVA) | payer MEDICARE, OTHER, SELFPAY | PROVIDERS: PCP Nurse Practitioner Family; Visit Provider Nurse Practitioner Family | DX: D50.0 Iron deficiency anemia secondary to blood loss (chronic) (principal); I48.91 Unspecified atrial fibrillation | CPT/HCPCS: 80053; 82607; 82728; 82746; 83550; 85025 ==